=== PATIENT | male | born 1970 | race Caucasian/White ===

== ENCOUNTER 2018-03-14 23:07 | Inpatient (IN) ==
[2018-03-15] MEDS ORDERED: Morphine Inj 4 MG/ML Vial IV.PUSH ONE (00:24)
[2018-03-15] MEDS ORDERED: Sod Chloride 0.9% Inj 1,000 ML IV.SIG ONE (00:24)
--- NOTE | 2018-03-15 00:29 | ED ---
HPI General Chief complaint: Abdominal Pain Stated complaint: Abd pain Time Seen by Provider: 03/15/18 00:15 History of Present Illness HPI narrative: This is a 47-year-old male with no significant past medical history. He presents for evaluation of right-sided abdominal pain. Symptoms started 4 days ago. He describes it as an intermittent sharp/bloating pain, worse this evening for dinner and this is what prompted evaluation. The pain is worse when he is sitting up or bending over. The pain was worse tonight after eating a full dinner of praveen/rice/beans. Over the past 3 days he has had a decreased appetite. He is denying any flank pain, chest pain, shortness of breath. He has had nausea without vomiting. He has had no diarrhea, hematuria or dysuria. No history of abdominal surgeries in the past. No other complaints at this time. Related Data Home Medications Medication Instructions Recorded Confirmed No Known Home Medications 03/15/18 03/15/18 Allergies Allergy/AdvReac Type Severity Reaction Status Date / Time No Known Allergies Allergy Verified 03/15/18 00:07 Review of Systems ROS: all other systems reviewed are negative [facility] Medical History Medical History Herniated disc (Acute) Surgical History Surgical History No history of previous surgery (Acute) Social History Social History Substance History: No History of Abuse Second Hand Smoke Exposure: No Smoking Status: Never smoker How Often Do You Have a Drink Containing Alcohol: 2 to 3 times a week Recent Travel in [facility] within the Last 8 Weeks: No Recent Out of Country Travel within the Last 8 Weeks: No Exam Narrative Exam Narrative: GENERAL: Well-developed well-nourished male in no acute distress SKIN: Warm and dry. HEAD: Atraumatic. Normocephalic. EYES: Pupils equal and round. No scleral icterus. No injection or drainage. ENT: No nasal bleeding or discharge. Mucous membranes pink and moist. NECK: Trachea midline. No JVD. CARDIOVASCULAR: Regular rate and rhythm. No murmur appreciated. RESPIRATORY: No accessory muscle use. Clear to auscultation. Breath sounds equal bilaterally. GASTROINTESTINAL: Abdomen soft, tender to palpation in the lower quadrants and right periumbilical region without guarding. MUSCULOSKELETAL: No obvious deformities. No clubbing. No cyanosis. No edema. NEUROLOGICAL: Awake and alert. No obvious cranial nerve deficits. Motor grossly within normal limits. Normal speech. Course Initial Documented Vital Signs Temperature 99.6 F 03/15/18 00:07 Pulse Rate 120 H 03/15/18 00:07 Respiratory Rate 16 03/15/18 00:07 Blood Pressure 167/103 H 03/15/18 00:07 Pulse Oximetry 98 03/15/18 00:07 Last Documented Vital Signs Temperature 99.1 F 03/15/18 00:32 Pulse Rate 108 H 03/15/18 03:30 Respiratory Rate 16 03/15/18 03:30 Blood Pressure 125/73 03/15/18 03:30 Pulse Oximetry 96 03/15/18 03:30 Medical Decision Making RASHID Attestation RASHID supervised visit: Yes Attestation: I, Dr. Cali, have reviewed the advance practice practitioner's documentation and am in agreement, met with the patient face to face, made the diagnosis, and the medical decision making was done by me. *My assessment and Findings: Pt has perforated sigmoid diverticulitis with pneumoperitoneum. IVF started, 2L NS bolus. 175cc/hr NS. Zosyn 4.5g IV x 1 here. Pt has HR approx 100-110 in ED with BP in the 120s/70s and generally appearing well, speaking full sentences w warm dry skin. Abdomen is diffusely tender. No rigidity our guarding. 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 IV established, lab work and urinalysis obtained. CT abdomen pelvis ordered. The patient was given IV fluid bolus, morphine and Zofran. At the end of my shift the patient was signed out to Dr. Cali pending lab work and imaging studies. Medical Screen Exam Complete: Yes Emergency Medical Condition: Yes Differential Diagnosis Differential Diagnosis: Appendicitis, colitis, cholecystitis, obstruction, enteritis Lab Data Result diagrams: 03/15/18 01:05 03/15/18 01:05 Lab Results 03/15/18 03/15/18 03/15/18 Range/Units 01:05 01:05 01:05 WBC 8.2 (4.0-11.0) th/mm3 RBC 4.40 L (4.50-5.90) mil/mm3 Hgb 14.6 (13.0-17.0) gm/dL Hct 42.8 (39.0-51.0) % MCV 97.1 (80.0-100.0) fL MCH 33.3 (27.0-34.0) pg MCHC 34.3 (32.0-36.0) % RDW 13.6 (11.6-17.2) % Plt Count 224 (150-450) th/mm3 MPV 7.2 (7.0-11.0) fL Neut % (Auto) 79.6 H (16.0-70.0) % Lymph % (Auto) 9.5 (9.0-44.0) % [place] % (Auto) 10.0 H (0.0-8.0) % Eos % (Auto) 0.6 (0.0-4.0) % Baso % (Auto) 0.3 (0.0-2.0) % Neut # (Auto) 6.6 (1.8-7.7) th/mm3 Lymph # (Auto) 0.8 L (1.0-4.8) th/mm3 [place] # (Auto) 0.8 (0.0-0.9) th/mm3 Eos # (Auto) 0.0 (0.0-0.4) th/mm3 Baso # (Auto) 0.0 (0.0-0.2) th/mm3 WBC Differential . Differential Comment Auto diff final PT 10.5 (9.8-11.6) sec INR 1.0 Ratio APTT 30.2 (23.4-31.7) sec Sodium 137 (136-145) meq/L Potassium 3.6 (3.5-5.1) meq/L Chloride 102 (98-107) meq/L Carbon Dioxide 28.7 (21.0-32.0) meq/L Anion Gap 6 (5-15) meq/L BUN 15 (7-18) mg/dL Creatinine 0.94 (0.60-1.30) mg/dL Estimated GFR 86 L (>89) mL/min Random Glucose 139 H (74-106) mg/dL Lactic Acid (0.4-2.0) mmol/L Calcium 9.3 (8.5-10.1) mg/dL Magnesium 2.3 (1.5-2.5) mg/dL Total Bilirubin 0.6 (0.2-1.0) mg/dL AST 21 (15-37) U/L ALT 25 (12-78) U/L Alkaline Phosphatase 105 (45-117) U/L Total Protein 8.5 H (6.4-8.2) g/dL Albumin 3.3 L (3.4-5.0) g/dL Lipase 113 (73-393) U/L Blood Type Blood Type Recheck Antibody Screen 03/15/18 03/15/18 Range/Units 03:05 03:22 WBC (4.0-11.0) th/mm3 RBC (4.50-5.90) mil/mm3 Hgb (13.0-17.0) gm/dL Hct (39.0-51.0) % MCV (80.0-100.0) fL MCH (27.0-34.0) pg MCHC (32.0-36.0) % RDW (11.6-17.2) % Plt Count (150-450) th/mm3 MPV (7.0-11.0) fL Neut % (Auto) (16.0-70.0) % Lymph % (Auto) (9.0-44.0) % [place] % (Auto) (0.0-8.0) % Eos % (Auto) (0.0-4.0) % Baso % (Auto) (0.0-2.0) % Neut # (Auto) (1.8-7.7) th/mm3 Lymph # (Auto) (1.0-4.8) th/mm3 [place] # (Auto) (0.0-0.9) th/mm3 Eos # (Auto) (0.0-0.4) th/mm3 Baso # (Auto) (0.0-0.2) th/mm3 WBC Differential Differential Comment PT (9.8-11.6) sec INR Ratio APTT (23.4-31.7) sec Sodium (136-145) meq/L Potassium (3.5-5.1) meq/L Chloride (98-107) meq/L Carbon Dioxide (21.0-32.0) meq/L Anion Gap (5-15) meq/L BUN (7-18) mg/dL Creatinine (0.60-1.30) mg/dL Estimated GFR (>89) mL/min Random Glucose (74-106) mg/dL Lactic Acid 0.8 (0.4-2.0) mmol/L Calcium (8.5-10.1) mg/dL Magnesium (1.5-2.5) mg/dL Total Bilirubin (0.2-1.0) mg/dL AST (15-37) U/L ALT (12-78) U/L Alkaline Phosphatase (45-117) U/L Total Protein (6.4-8.2) g/dL Albumin (3.4-5.0) g/dL Lipase (73-393) U/L Blood Type B Positive Blood Type Recheck Required Antibody Screen Negative Imaging Data Radiologist's impression: Abdomen/Pelvis CT 03/15/18 00:24 CONCLUSION: 1. Acute perforated sigmoid diverticulitis with secondary involvement of 2 loops of adjacent small bowel. Pneumoperitoneum is noted. No abscess. Discharge Plan Discharge Disposition Patient Disposition: ED Admit(ED Internal Use Only) Discharge Order Discharge Orders: ED Use Only Admit Order (Routine); Ordered 03/15/18 Ordered By: Donny Cali Physicians Team ED Provider: Donny Cali ED Midlevel Provider: J Carlos Nieto Attending Provider: Arturo Madera Status ED Status: Admitted Patient
[2018-03-15 01:22] LABS: Baso % (Auto) 0.3 % (0.0-2.0); Eos % (Auto) 0.6 % (0.0-4.0); Hematocrit 42.8 % (39.0-51.0); Hemoglobin 14.6 gm/dL (13.0-17.0); Lymph # (Auto) 0.8 th/mm3 (1.0-4.8); Lymph % (Auto) 9.5 % (9.0-44.0); Mean Corpuscular HGB Conc 34.3 % (32.0-36.0); Mean Corpuscular Hemoglobin 33.3 pg (27.0-34.0); Mean Corpuscular Volume 97.1 fL (80.0-100.0); Mean Platelet Volume 7.2 fL (7.0-11.0); Mono # (Auto) 0.8 th/mm3 (0.0-0.9); Neut # (Auto) 6.6 th/mm3 (1.8-7.7); Neut % (Auto) 79.6 % (16.0-70.0); Platelet Count 224 th/mm3 (150-450); Red Cell Distribution Width 13.6 % (11.6-17.2); White Blood Count 8.2 th/mm3 (4.0-11.0)
[2018-03-15 01:39] LABS: Activated Partial Thrombo Time 30.2 sec (23.4-31.7); Prothrombin Time 10.5 sec (9.8-11.6)
[2018-03-15 01:46] LABS: Alkaline Phosphatase 105 U/L (45-117); Total Protein 8.5 g/dL (6.4-8.2)
[2018-03-15 01:51] LABS: Alanine Aminotransferase 25 U/L (12-78); Albumin 3.3 g/dL (3.4-5.0); Anion Gap 6 meq/L (5-15); Aspartate Aminotransferase 21 U/L (15-37); Blood Urea Nitrogen 15 mg/dL (7-18); Calcium 9.3 mg/dL (8.5-10.1); Carbon Dioxide 28.7 meq/L (21.0-32.0); Chloride 102 meq/L (98-107); Glomerular Filtration Rate 86 mL/min (>89); Glucose,Random 139 mg/dL (74-106); Lipase 113 U/L (73-393); Magnesium 2.3 mg/dL (1.5-2.5); Sodium 137 meq/L (136-145)
[2018-03-15 01:52] LABS: Potassium 3.6 meq/L (3.5-5.1)
--- NOTE | 2018-03-15 02:31 | CT ---
EXAM DATE: 03/15/2018 2:20 AM EST AGE/SEX: 47 years / Male INDICATIONS: Right side abdominal pain. CLINICAL DATA: This is the patient's initial encounter. Patient reports that signs and symptoms have been present for 4 - 6 days and indicates a pain score of 7/10. MEDICAL/SURGICAL HISTORY: None. None. ORAL CONTRAST: No oral contrast ingested. RADIATION DOSE: 9.33 CTDI (mGy) COMPARISON: No prior exams available for comparison. TECHNIQUE: Multiple contiguous axial images were obtained through the abdomen and pelvis following b olus infusion of 95 ml Omnipaque 350 (iohexol) nonionic water-soluble contrast as a single exam dos e. No oral contrast ingested. Using automated exposure control and adjustment of the mA and/or kV ac cording to patient size, radiation dose was kept as low as reasonably achievable to obtain optimal di agnostic quality images. DICOM format image data is available electronically for review and comparis on. FINDINGS: Lower Lungs: The visualized lower lungs are clear. Liver: The liver has a homogeneous density without space-occupying lesion. There is no dilation of th e biliary tree. Spleen: Homogeneous density without enlargement. Pancreas: Unremarkable without mass or calcification. Kidneys: Normal in size and shape. No evidence of mass or hydronephrosis. Adrenal Glands: Unremarkable. Aorta: The aorta and proximal iliac vessels are grossly unremarkable without aneurysmal dilation. Bowel/Mesentery: There is an acute inflammatory process involving the sigmoid colon. There is second serina involvement of 2 adjacent loops of small bowel. There is circumferential wall thickening involvin g the structures as well as stranding of the adjacent fat. There is a perforation of the sigmoid colo n with pneumoperitoneum. The pneumoperitoneum is not contained and is seen both adjacent to the sigmo id colon as well as more cephalad within the peritoneal cavity. No abscess observed. No dilatation to suggest obstruction. Abdominal Wall: Intact. Retroperitoneum: No evidence of adenopathy in the retrocrural, para-aortic, or deep pelvic regions. Bladder: Contours are smooth. Reproductive Organs: No abnormal masses or calcifications seen. Inguinal: The inguinal region is unremarkable without evidence of adenopathy. Bony Structures: Unremarkable. CONCLUSION: 1. Acute perforated sigmoid diverticulitis with secondary involvement of 2 loops of adjacent small b owel. Pneumoperitoneum is noted. No abscess. Electronically signed by: Cristian Hernández MD Board Certified Radiologist 03/15/2018 2:29 AM EST
[2018-03-15] MEDS: Piperacil/Tazo 4.5 GM Premix 4.5 GM/100 ML BAG IV.SIG SCH ×6 (03:00→21:09)
[2018-03-15] MEDS ORDERED: Sod Chloride 0.9% Inj 1,000 ML IV.SIG SCH (03:00)
[2018-03-15] MEDS ORDERED: Chlorhexidine Gluconate 2% 1 Pack (2 Cloths) TOPICAL PRN (04:00)
[2018-03-15] MEDS ORDERED: Piperacil/Tazo 4.5 GM Premix 4.5 GM/100 ML BAG IV.SIG SCH (04:00)
[2018-03-15] MEDS ORDERED: Acetaminophen 325 MG Tablet PO PRN (04:00)
[2018-03-15] MEDS ORDERED: Bisacodyl 10 MG Supp RECTAL PRN (04:00)
--- NOTE | 2018-03-15 04:05 | P.HPCC ---
History of Present Illness Primary Care Physician: Manuel Snow History of Present Illness: 47-year-old male with no significant past medical history, presents for an evaluation of right-sided abdominal pain. Symptoms started 4 days ago. He describes it as an intermittent sharp/bloating pain, worse this evening after dinner and this is what prompted evaluation. The pain is worse when he is sitting up or bending over. The pain was worse tonight after eating a full dinner of praveen/rice/beans. Over the past 3 days he has had a decreased appetite. He is denying any flank pain, chest pain, shortness of breath. He has had nausea without vomiting. He has had no diarrhea, hematuria or dysuria. No history of abdominal surgeries in the past. No other complaints at this time.CT of the abdomen obtained in the emergency department revealed acute perforated sigmoid diverticulitis with secondary involvement of 2 loops of adjacent small bowel. Pneumoperitoneum is noted. No abscess. This was discussed by ED attending with the surgeon clinical services consultant Dr. Maria, that recommended ICU admission with IV fluid hydration and IV antibiotics with no current surgical intervention. Inpatient Certification: I certify that the inpatient services were ordered in accordance with Medicare regulations governing the order. This includes certification that hospital inpatient services are reasonable and necessary and in the case of services not specified as inpatient-only under 42 CFR 419.22(n), that they are appropriately provided as inpatient services in accordance to with the 2-midnight benchmark under 43 CFR 412.3(e) Estimated Total Length of Stay (Days): 5 Plans for Post Hospital Care: Not yet determined Review of Systems All other systems reviewed negative except as stated in HPI [facility] - History History Provided By: Patient, Family Member - Medical History Medical History: Medical History (Last Updated 03/15/18 @ 00:12 by Dhara Verde) Herniated disc - Surgical History Surgical History: Surgical History (Last Updated 03/15/18 @ 00:12 by Dhara Verde) No history of previous surgery - Tobacco History Second Hand Smoke Exposure: No Tobacco Use In Past 30 Days: No Smoking Status: Never smoker - Alcohol History How Often Do You Have a Drink Containing Alcohol: 2 to 3 times a week - Substance Use History Substance History: No History of Abuse - Travel History Recent Travel in the [place] Within the Last 8 Weeks: No Recent Travel Out of the Country Within the Last 8 Weeks: No - Immunization History Tetanus Immunization: Unsure Medications and Allergies Active Medications: Active Medications Acetaminophen (Tylenol) 650 mg PO Q6H PRN PRN Reason: PAIN 1-10 AND/OR FEVER >101F Al Hydroxide/Mg Hydroxide (Milk Of Magnesia Liq) 30 ml PO Q12H PRN PRN Reason: Mild Constipation Albuterol (Duoneb Neb (Prn)) 1 ampul NEB Q2HR NEB PRN PRN Reason: WHEEZING Bisacodyl (Dulcolax Supp) 10 mg RECTAL DAILY PRN PRN Reason: SEVERE CONSITIPATION Chlorhexidine Gluconate (Chlorhexidine 2% Cloth) 3 pack TOPICAL DAILY@0400 RODGER Stop: 03/20/18 03:59 Chlorhexidine Gluconate (Chlorhexidine 2% Cloth) 3 pack TOPICAL DAILY@0400 PRN PRN Reason: Extra cloth needed Stop: 03/20/18 03:59 Famotidine (Pepcid Pf Inj) 20 mg IV.PUSH Q12HR RODGER Heparin Sodium (Porcine) (Heparin Inj) 5,000 units SQ Q8H RODGER Piperacillin/Tazobactam/Dextrose (Zosyn 4.5 Gm Premix) 4.5 gm in 100 mls @ 200 mls/hr IV.SIG ONCE [facility] Last Infusion: 03/15/18 03:40 Dose: Infused Sodium Chloride (Ns Inj) 1,000 mls @ 175 mls/hr IV.CONT .Q5H43M RODGER Piperacillin/Tazobactam/Dextrose (Zosyn 4.5 Gm Premix) 4.5 gm in 100 mls @ 200 mls/hr IV.SIG Q6H RODGER Fluconazole (Diflucan 400 Mg Premix Bag) 200 mls @ 100 mls/hr IV.SIG Q24H [facility] Stop: 03/17/18 06:59 Lactulose (Lactulose Liq) 30 ml PO DAILY PRN PRN Reason: SEVERE CONSITIPATION Morphine Sulfate (Morphine Inj) 2 mg IV.PUSH Q2H PRN PRN Reason: PAIN SCALE 6 TO 10 Ondansetron HCl (Zofran Inj) 4 mg IV.PUSH Q6H PRN PRN Reason: NAUSEA OR VOMITING Senna/Docusate Sodium (Pema-Colace) 1 tab PO BID [facility] Sennosides (Senokot) 17.2 mg PO Q12H PRN PRN Reason: Moderate Constipation Sodium Chloride (Ns Flush) 2 ml IV.FLUSH PRN PRN PRN Reason: FLUSH AFTER USING IV ACCESS Sodium Chloride (Ns Flush) 2 ml IV.FLUSH BID RODGER Sodium Chloride (Ns Flush) 2 ml IV.FLUSH PRN PRN PRN Reason: FLUSH AFTER USING IV ACCESS Temazepam (Restoril) 15 mg PO HS PRN PRN Reason: INSOMNIA Allergies Allergy/AdvReac Type Severity Reaction Status Date / Time No Known Allergies Allergy Verified 03/15/18 00:07 Home Medications Medication Instructions Recorded Confirmed Type No Known Home Medications 03/15/18 03/15/18 History Results - Labs CBC & Chem 7: 03/15/18 01:05 03/15/18 01:05 Labs: Short CBC 03/15/18 Range/Units 01:05 WBC 8.2 (4.0-11.0) th/mm3 Hgb 14.6 (13.0-17.0) gm/dL Hct 42.8 (39.0-51.0) % Plt Count 224 (150-450) th/mm3 BMP 03/15/18 01:05 Sodium 137 Potassium 3.6 Chloride 102 Carbon Dioxide 28.7 BUN 15 Creatinine 0.94 Calcium 9.3 Liver Function 03/15/18 Range/Units 01:05 Total Bilirubin 0.6 (0.2-1.0) mg/dL AST 21 (15-37) U/L ALT 25 (12-78) U/L Alkaline Phosphatase 105 (45-117) U/L Albumin 3.3 L (3.4-5.0) g/dL - Imaging Impressions Abdomen/Pelvis CT 03/15/18 00:24 CONCLUSION: 1. Acute perforated sigmoid diverticulitis with secondary involvement of 2 loops of adjacent small bowel. Pneumoperitoneum is noted. No abscess. Exam Vital signs: Vital Signs 03/15/18 00:07 03/15/18 00:32 03/15/18 03:00 Temperature 99.6 F 99.1 F Pulse Rate 120 H 102 H 104 H Respiratory Rate 16 17 16 Blood Pressure 167/103 H 166/102 H 126/75 Pulse Oximetry 98 96 97 03/15/18 03:30 Temperature Pulse Rate 108 H Respiratory Rate 16 Blood Pressure 125/73 Pulse Oximetry 96 Intake & Output 03/14/18 03/14/1819 06:59 18:59 06:59 Intake Total 1100 / 1100 Balance 1100 / 1100 Weight 99.79 kg Intake: IV 1100 / 1100 Zosyn 4.5 GM Premix 4.5 gm In 100 / 100 100 ml @ 200 mls/hr IV.SIG ONCE RODGER Rx#:[id number] NS Inj 1,000 ML @ Wide Open IV. 1000 / 1000 SIG BOLUS ONE Rx#:[id number] - Constitutional no acute distress - Routine HEENT Exam Head: Present: normocephalic, atraumatic Eye: Present: EOMI, PERRL ENT: Present: mucous membranes moist - Routine Neck Exam Present: supple, full ROM. Absent: JVD, carotid bruit - Routine Respiratory Exam Absent: accessory muscle use, rales, wheezes, crackles - Routine Cardiovascular Exam Present: RRR, S1, S2 - Routine Abdominal Exam Present: soft, normoactive bowel sounds, tenderness, distended. Absent: rebound , guarding - Routine Extremities Exam Absent: cyanosis, clubbing, edema - Routine Skin Exam Present: intact - Routine Neurological Exam Present: alert, oriented X3, moving all extremities Septic Shock Reassessment Septic shock perfusion: reassessment completed Caprini VTE Risk Assessment Caprini VTE Risk Assessment: Moderate/High Risk (score >= 2) Caprini Risk Assessment Model: Point Value = 1 Point Value = 2 Point Value = 3 Point Value = 5 Age 41-60 Minor surgery BMI > 25 kg/m2 Swollen legs Varicose veins or History of unexplained or recurrent spontaneous Oral contraceptives or hormone replacement Sepsis (< 1 month) Serious lung disease, including pneumonia (< 1 month) Abnormal pulmonary function Acute myocardial infarction Congestive heart failure (< 1 month) History of inflammatory bowel disease Medical patient at bed rest Age 61-74 Arthroscopic surgery Major open surgery (> 45 min) Laparoscopic surgery (> 45 min) Malignancy Confined to bed (> 72 hours) Immobilizing plaster cast Central venous access Age >= 75 History of VTE Family history of VTE Factor V Leiden Prothrombin [id number] Lupus anticoagulant Anticardiolipin antibodies Elevated serum homocysteine Heparin-induced thrombocytopenia Other congenital or acquired thrombophilia Stroke (< 1 month) Elective arthroplasty Hip, pelvis, or leg fracture Acute spinal cord injury (< 1 month) Prophylaxis Regimen: Total Risk Factor Score Risk Level Prophylaxis Regimen 0-1 Low Early ambulation 2 Moderate Order ONE of the following: *Sequential Compression Device (SCD) *Heparin 5000 units SQ BID 3-4 Higher Order ONE of the following medications: *Heparin 5000 units SQ TID *Enoxaparin/Lovenox 40 mg SQ daily (WT < 150 kg, CrCl > 30 mL/min) *Enoxaparin/Lovenox 30 mg SQ daily (WT < 150 kg, CrCl > 10-29 mL/min) *Enoxaparin/Lovenox 30 mg SQ BID (WT < 150 kg, CrCl > 30 mL/min) AND/OR *Sequential Compression Device (SCD) 5 or more Highest Order ONE of the following medications: *Heparin 5000 units SQ TID (Preferred with Epidurals) *Enoxaparin/Lovenox 40 mg SQ daily (WT < 150 kg, CrCl > 30 mL/min) *Enoxaparin/Lovenox 30 mg SQ daily (WT < 150 kg, CrCl > 10-29 mL/min) *Enoxaparin/Lovenox 30 mg SQ BID (WT < 150 kg, CrCl > 30 mL/min) AND *Sequential Compression Device (SCD) Assessment and Plan - Assessment and Plan Plan: Acute perforated sigmoid diverticulitis -N.p.o. -IV fluid hydration -Empirically Zosyn and Diflucan -Further management per general surgery Dr. Maria DVT GI prophylaxis -Teds SCDs -Subcu heparin -Pepcid Level 2
[2018-03-15] MEDS: Heparin - SQ 10,000 UNITS/ML Vial SQ SCH ×3 (04:16→21:08)
[2018-03-15 06:35] LABS: Bilirubin,Urine Negative (Negative); Clarity,Urine Clear (Clear); Color,Urine Yellow (Yellw/Straw); Glucose,Urine (UA) Negative (Negative); Leukocyte Esterase,Urine Negative (Negative); Mucus,Urine Few /lpf (Occasional); Nitrite,Urine Negative (Negative)
[2018-03-15] MEDS: Chlorhexidine Gluconate 2% 1 Pack (2 Cloths) TOPICAL SCH (06:55)
[2018-03-15] MEDS: Sod Chloride 0.9% Inj 1,000 ML IV.CONT SCH ×3 (06:55→17:22)
[2018-03-15] MEDS: Famotidine PF Inj 20 MG/2 ML Vial IV.PUSH SCH ×2 (08:03→21:07)
[2018-03-15] MEDS ORDERED: Morphine Inj 4 MG/ML Vial IV.PUSH PRN (08:59)
[2018-03-15] MEDS ORDERED: Senna/Docusate Sodium 8.6/50 MG Tablet PO SCH (09:00)
[2018-03-15] MEDS ORDERED: Magnesium Sulfate Inj 4 GM in Sodium Chlor 0.9% Inj 92 ML IV.SIG PRN (09:10)
[2018-03-15] MEDS ORDERED: Potassium Chlor 20 mEq Premix 20 MEQ/100 ML PIGGYBACK IV.SIG PRN ×2 (09:10)
[2018-03-15] MEDS ORDERED: Magnesium Sulfate Inj 2 GM in Sodium Chlor 0.9% Inj 96 ML IV.SIG PRN (09:10)
[2018-03-15] MEDS ORDERED: Potassium Chlor 40 mEq Premix 40 MEQ/100 ML PIGGYBACK IV.SIG PRN ×2 (09:10)
[2018-03-15] MEDS ORDERED: Sodium Phosphate Inj 30 MMOL in Sodium Chlor 0.9% Inj 250 ML IV.SIG PRN (09:10)
[2018-03-15] MEDS ORDERED: Potassium Phosphate Inj 30 MMOL in Sodium Chlor 0.9% Inj 250 ML IV.SIG PRN (09:10)
[2018-03-15] MEDS: Morphine Inj 4 MG/ML Vial IV.PUSH PRN ×2 (10:59→23:34)
--- NOTE | 2018-03-15 10:59 | P.CONGS ---
[facility] Gen Surgery Consult Note Consult date: 03/15/18 Narrative: 47 yo M with h/o 4 days of abdominal pain. It was most severe 4 days ago and then decreasing in severity until last night. He had had decreased appetite and one night he had fever and chills. The pain had almost completely resolved yesterday and then about 15 minutes after dinner he had severe onset of lower abdominal pain which was debilitating. He presented to the emergency department. He had normal white blood count with a left shift. He underwent CT of the abdomen and pelvis which revealed perforated sigmoid diverticulitis with pneumoperitoneum and inflammation of some associated small bowel. On my evaluation this morning he states his pain has improved slightly since last night but is still severe. Review of Systems All other systems reviewed negative except as stated in [facility] - History History Provided By: Patient, Family Member - Medical History Medical History: Medical History (Last Reviewed 03/15/18 @ 09:57 by Jaclyn Farmer DO) Herniated disc - Surgical History Surgical History: Surgical History (Last Reviewed 03/15/18 @ 09:57 by Jaclyn Farmer DO) No history of previous surgery - Tobacco History Second Hand Smoke Exposure: No Tobacco Use In Past 30 Days: No Smoking Status: Never smoker - Alcohol History How Often Do You Have a Drink Containing Alcohol: 2 to 3 times a week - Substance Use History Substance History: No History of Abuse - Travel History Recent Travel in the [place] Within the Last 8 Weeks: No Recent Travel Out of the Country Within the Last 8 Weeks: No - Immunization History Tetanus Immunization: Unsure Medications and Allergies Active Medications: Active Medications Acetaminophen (Tylenol) 650 mg PO Q6H PRN PRN Reason: PAIN 1-10 AND/OR FEVER >101F Al Hydroxide/Mg Hydroxide (Milk Of Sheila Lijuancho) 30 ml PO Q12H PRN PRN Reason: Mild Constipation Albuterol (Duoneb Neb (Prn)) 1 ampul NEB Q2HR NEB PRN PRN Reason: WHEEZING Bisacodyl (Dulcolax Supp) 10 mg RECTAL DAILY PRN PRN Reason: SEVERE CONSITIPATION Chlorhexidine Gluconate (Chlorhexidine 2% Cloth) 3 pack TOPICAL DAILY@0400 [facility] Stop: 03/20/18 03:59 Last Admin: 03/15/18 06:55 Dose: 3 pack Chlorhexidine Gluconate (Chlorhexidine 2% Cloth) 3 pack TOPICAL DAILY@0400 PRN PRN Reason: Extra cloth needed Stop: 03/20/18 03:59 Famotidine (Pepcid Pf Inj) 20 mg IV.PUSH Q12HR [facility] Last Admin: 03/15/18 08:03 Dose: 20 mg Heparin Sodium (Porcine) (Heparin Inj) 5,000 units SQ Q8H [facility] Last Admin: 03/15/18 04:16 Dose: 5,000 units Piperacillin/Tazobactam/Dextrose (Zosyn 4.5 Gm Premix) 4.5 gm in 100 mls @ 200 mls/hr IV.SIG ONCE [facility] Last Infusion: 03/15/18 03:40 Dose: Infused Sodium Chloride (Ns Inj) 1,000 mls @ 175 mls/hr IV.CONT .Q5H43M [facility] Last Admin: 03/15/18 06:55 Dose: 175 mls/hr Fluconazole (Diflucan 400 Mg Premix Bag) 200 mls @ 100 mls/hr IV.SIG Q24H [facility] Stop: 03/17/18 06:59 Last Infusion: 03/15/18 09:08 Dose: Infused Piperacillin/Tazobactam/Dextrose (Zosyn 4.5 Gm Premix) 4.5 gm in 100 mls @ 200 mls/hr IV.SIG Q6H [facility] Last Infusion: 03/15/18 09:08 Dose: Infused Magnesium Sulfate 4 gm/ Sodium (Chloride) 100 mls @ 50 mls/hr IV.SIG UNSCH PRN PRN Reason: For Magnesium 0.9 - 1.1 mg/dL Magnesium Sulfate 2 gm/ Sodium (Chloride) 100 mls @ 50 mls/hr IV.SIG UNSCH PRN PRN Reason: For Magnesium 1.2 - 1.6 mg/dL Potassium Chloride (Kcl 40 Meq Premix Inj) 40 meq in 100 mls @ 25 mls/hr IV.SIG Q2H PRN PRN Reason: For Potassium 2.8 - 3.2 mEq/L Potassium Chloride (Kcl 20 Meq Premix Inj) 20 meq in 100 mls @ 50 mls/hr IV.SIG Q2H PRN PRN Reason: For Potassium 3.3 - 3.5 mEq/L Potassium Chloride (Kcl 40 Meq Premix Inj) 40 meq in 100 mls @ 25 mls/hr IV.SIG UNSCH PRN PRN Reason: For Potassium 3.3 - 3.5 mEq/L Potassium Phosphate 30 mmol/ (Sodium Chloride) 260 mls @ 42 mls/hr IV.SIG UNSCH PRN PRN Reason: SEE LABEL COMMENTS Sodium Phosphate 30 mmol/ (Sodium Chloride) 260 mls @ 42 mls/hr IV.SIG UNSCH PRN PRN Reason: For Phosphorus < 2.5 mg/dL Potassium Chloride (Kcl 20 Meq Premix Inj) 20 meq in 100 mls @ 50 mls/hr IV.SIG Q2H PRN PRN Reason: For Potassium 2.8 - 3.2 mEq/L Lactulose (Lactulose Liq) 30 ml PO DAILY PRN PRN Reason: SEVERE CONSITIPATION Morphine Sulfate (Morphine Inj) 2 mg IV.PUSH Q2H PRN PRN Reason: PAIN SCALE 1 TO 5 Morphine Sulfate (Morphine Inj) 4 mg IV.PUSH Q2H PRN PRN Reason: PAIN SCALE 6 TO 10 Ondansetron HCl (Zofran Inj) 4 mg IV.PUSH Q6H PRN PRN Reason: NAUSEA OR VOMITING Senna/Docusate Sodium (Pema-Colace) 1 tab PO BID [facility] Last Admin: 03/15/18 08:03 Dose: Not Given Sennosides (Senokot) 17.2 mg PO Q12H PRN PRN Reason: Moderate Constipation Sodium Chloride (Ns Flush) 2 ml IV.FLUSH BID [facility] Last Admin: 03/15/18 08:03 Dose: 2 ml Sodium Chloride (Ns Flush) 2 ml IV.FLUSH PRN PRN PRN Reason: FLUSH AFTER USING IV ACCESS Temazepam (Restoril) 15 mg PO HS PRN PRN Reason: INSOMNIA Allergies Allergy/AdvReac Type Severity Reaction Status Date / Time No Known Allergies Allergy Verified 03/15/18 00:07 Home Medications Medication Instructions Recorded Confirmed Type No Known Home Medications 03/15/18 03/15/18 History Exam Vital signs: Vital Signs 03/15/18 00:07 03/15/18 00:32 03/15/18 03:00 Temperature 99.6 F 99.1 F Pulse Rate 120 H 102 H 104 H Respiratory Rate 16 17 16 Blood Pressure 167/103 H 166/102 H 126/75 Pulse Oximetry 98 96 97 03/15/18 03:30 03/15/18 06:00 03/15/18 06:25 Temperature Pulse Rate 108 H 98 H Respiratory Rate 16 Blood Pressure 125/73 132/83 Pulse Oximetry 96 03/15/18 06:26 03/15/18 06:39 03/15/18 07:00 Temperature 99.9 F H Pulse Rate 103 H 103 H Respiratory Rate 21 21 Blood Pressure 141/77 H Pulse Oximetry 99 97 96 03/15/18 07:13 03/15/18 08:00 03/15/18 08:13 Temperature 98.0 F Pulse Rate 100 H 94 H 92 H Respiratory Rate 17 19 18 Blood Pressure 122/75 120/75 120/75 Pulse Oximetry 96 97 95 03/15/18 09:00 03/15/18 10:00 Temperature Pulse Rate 89 89 Respiratory Rate 15 Blood Pressure Pulse Oximetry 97 Intake & Output 03/14/18 03/15/18 03/15/18 18:59 06:59 18:59 Intake Total 2100 / 2100 300 / 300 Balance 2100 / 2100 300 / 300 Weight 98.5 kg Intake: IV 2100 / 2100 300 / 300 Diflucan 400 mg Premix Bag 200 200 / 200 ML @ 100 mls/hr IV.SIG Q24H [facility] Rx#:[id number] Zosyn 4.5 GM Premix 4.5 gm In 100 / 100 100 / 100 100 ml @ 200 mls/hr IV.SIG Q6H [facility] Rx#:[id number] NS Inj 1,000 ML @ 1000 mls/hr 1999 / 1999 IV.SIG BOLUS [facility] Rx#:[id number] Oral 0 / 0 Other: Date of Last Bowel Movement 03/14/18 03/14/18 Weight On Admission 98.5 kg Narrative: GENERAL: Awake and alert. No acute distress. Cooperative. HEAD: Normocephalic. Atraumatic. EYES: Pupils equal round and reactive to light bilaterally. No scleral icterus. ENT: Moist oral mucosa. NECK: Trachea midline. CHEST: Nonlabored breathing. No respiratory distress. CARDIOVASCULAR: Mild sinus tachycardia. ABDOMEN: Mild distention. Severe tenderness in the right lower quadrant with positive rebound. Less severe rebound in the upper abdomen in the left lower abdomen. EXTREMITIES: No cyanosis or edema. SKIN: Warm, dry, nonjaundiced. Results - Labs 03/15/18 01:05 03/15/18 01:05 Laboratory Results - last 24 hr 03/15/18 03/15/18 03/15/18 01:05 01:05 01:05 WBC 8.2 RBC 4.40 L Hgb 14.6 Hct 42.8 MCV 97.1 MCH 33.3 MCHC 34.3 RDW 13.6 Plt Count 224 MPV 7.2 Neut % (Auto) 79.6 H Lymph % (Auto) 9.5 [place] % (Auto) 10.0 H Eos % (Auto) 0.6 Baso % (Auto) 0.3 Neut # (Auto) 6.6 Lymph # (Auto) 0.8 L [place] # (Auto) 0.8 Eos # (Auto) 0.0 Baso # (Auto) 0.0 WBC Differential . Differential Comment Auto diff final PT 10.5 INR 1.0 APTT 30.2 Sodium 137 Potassium 3.6 Chloride 102 Carbon Dioxide 28.7 Anion Gap 6 BUN 15 Creatinine 0.94 Estimated GFR 86 L Random Glucose 139 H Lactic Acid Calcium 9.3 Magnesium 2.3 Total Bilirubin 0.6 AST 21 ALT 25 Alkaline Phosphatase 105 Total Protein 8.5 H Albumin 3.3 L Lipase 113 Urine Color Urine Clarity Urine pH Ur Specific [place] Urine Protein Urine Glucose (UA) Urine Ketones Urine Occult Blood Urine Nitrate Urine Bilirubin Urine Urobilinogen Ur Leukocyte Esterase Urine RBC Urine WBC Urine Mucus Micro UA Comment Ur Microscopic Review Urine Culture Comments Blood Type Blood Type Recheck Antibody Screen 03/15/18 03/15/18 03/15/18 03:05 03:22 05:00 WBC RBC Hgb Hct MCV MCH MCHC RDW Plt Count MPV Neut % (Auto) Lymph % (Auto) [place] % (Auto) Eos % (Auto) Baso % (Auto) Neut # (Auto) Lymph # (Auto) [place] # (Auto) Eos # (Auto) Baso # (Auto) WBC Differential Differential Comment PT INR APTT Sodium Potassium Chloride Carbon Dioxide Anion Gap BUN Creatinine Estimated GFR Random Glucose Lactic Acid 0.8 Calcium Magnesium Total Bilirubin AST ALT Alkaline Phosphatase Total Protein Albumin Lipase Urine Color Yellow Urine Clarity Clear Urine pH 5.0 Ur Specific [place] Greater than 1.060 H Urine Protein Negative Urine Glucose (UA) Negative Urine Ketones Negative Urine Occult Blood Negative Urine Nitrate Negative Urine Bilirubin Negative Urine Urobilinogen Less than 2 Ur Leukocyte Esterase Negative Urine RBC 2 Urine WBC Less than 1 Urine Mucus Few H Micro UA Comment Culture not ind Ur Microscopic Review Not Reportable Urine Culture Comments Culture not ind Blood Type B Positive Blood Type Recheck Required Antibody Screen Negative - Imaging Imaging: ITS Impressions Abdomen/Pelvis CT 03/15/18 00:24 CONCLUSION: 1. Acute perforated sigmoid diverticulitis with secondary involvement of 2 loops of adjacent small bowel. Pneumoperitoneum is noted. No abscess. CT scan - abdomen: report reviewed, image reviewed CT scan - pelvis: report reviewed, image reviewed Assessment and Plan - Assessment (1) Diverticulitis of colon with perforation Code(s): K57.20 - Diverticulitis of large intestine with perforation and abscess without bleeding Status: Acute - Plan 47-year-old male who has diverticulitis with perforation and pneumoperitoneum. He is quite tenderness with borderline and generalized peritonitis on exam. There is associated small bowel involvement. I have recommended to proceed to the operating room for diagnostic laparoscopy with washout and drainage, possible colectomy and colostomy, possible diverting ileostomy. He understands there are multiple options and this will be an intraoperative decision. I do think he will likely be able to be treated with laparoscopic washout and drainage alone at this time but we will see. Continue IV antibiotics.
[2018-03-15] MEDS ORDERED: Bupivacaine/Epinephrine Inj 0.25% 50 ML Vial ONE (11:20)
--- NOTE | 2018-03-15 14:21 | P.OP ---
- Preoperative Diagnosis (1) Diverticulitis of colon with perforation - Postoperative Diagnosis (1) Diverticulitis of colon with perforation Date of procedure: 03/15/18 Procedure: Laparoscopic drainage of intraabdominal abscess and lysis of adhesions Diverting ileostomy Anesthesia: ISABELA Surgeon: Leo Oliveira MD Auto Porter: Michael PINO Estimated blood loss (mL): 20 Pathology: none sent Operation and Findings: Operative findings: Phlegmon in right lower abdomen with multiple loops of small bowel very inflamed and adherent to sigmoid colon. After careful gentle adhesiolysis and separation of the small bowel loops a sigmoid diverticular perforation was noted and associated with small abscess and significantly inflamed surrounding mesenteric tissue and small bowel. The appendix was visualized and was normal. Washout, drainage, and diverting ileostomy were performed. Procedure in detail: The patient was taken to the operating room placed in supine position. General endotracheal anesthesia was induced. The abdomen was prepped and draped in usual sterile fashion and a surgical timeout was performed to verify correct patient procedure and site. [place] catheter and orogastric tube were placed. He was on scheduled antibiotics. Local anesthetic was injected in skin and subcutaneous tissue in the left midabdomen and a 5 mm incision made. The Optiview trocar with the laparoscope in place was used to directly enter the abdominal cavity which was insufflated to 15 mmHg with CO2 gas. A 5 mm port was placed in the epigastrium and on the left lower abdomen. The patient was placed in Trendelenburg position. There was evidence of generalized peritonitis with inflammation of small bowel and peritoneum. In the right lower abdomen there was a large phlegmonous mass of small bowel mesentery and omentum. Omentum was . Multiple loops of small bowel were significantly inflamed and gently adherent to one another. These loops were carefully teased apart using blunt dissection. More deeply there were 2 loops intimately associated with an abscess in these were finally able to be freed. The loop of sigmoid colon coming into the right lower abdomen had an area of obvious perforation causing a diverticular abscess and the pneumoperitoneum and peritonitis. Exudate and a small amount of purulent and feculent fluid in the abscess cavity was suctioned. The appendix was visualized and was normal. Due to the perforation which is visible in the sigmoid colon I did not feel comfortable with drainage alone. Therefore, I opted to proceed with diverting ileostomy. First, I reevaluated the small bowel and there were no injuries to the small bowel. The very distal terminal ileum was significantly inflamed. Proximal to this the small bowel was only mildly inflamed and this was a site chosen for the ileostomy. The abscess cavity pelvis and right lower quadrant were copiously irrigated and the entire abdomen was irrigated with 3 L of normal saline. A single [id number] 3-0 Vicryl suture was placed into the sigmoid colon at the site of the perforation to reapproximate the tissues. A 19 Pashto round [place] drain was placed to the left lower port site alongside the sigmoid colon. This was secured with 3-0 nylon suture. In the right lower quadrant circular incision was made in the skin removed. Dissection was carried out through subcutaneous tissue with electrocautery and a cruciate incision made in the anterior fascia. The posterior fascia was elevated and incised. 2 fingers fit through this ostomy site in the portion of terminal ileum chosen was brought through an externalized. The hazel was placed through the mesentery at the site. A transverse incision was made on the small bowel approximately one [address] way across. The ileostomy was matured proximally and distally to the skin with 3-0 Vicryl suture in Rose fashion. The patient tolerated the procedure well. An ostomy appliance was applied. The remaining 2 port sites were closed with subcuticular 4-0 Monocryl suture and Dermabond. Sponge management counts were correct. He was extubated and taken to PACU in stable condition.
[2018-03-15] MEDS ORDERED: fentaNYL Citrate Inj 100 MCG/2 ML Ampul ONE (14:46)
[2018-03-15] MEDS ORDERED: Morphine Inj 4 MG/ML Vial ONE (14:52)
[2018-03-15] MEDS: Ketorolac Inj 30 MG/ML (IVP) Vial IV.PUSH SCH ×2 (15:00→21:08)
[2018-03-15 16:22] LABS: Baso % (Auto) 0.3 % (0.0-2.0); Eos % (Auto) 0.2 % (0.0-4.0); Hematocrit 37.9 % (39.0-51.0); Lymph # (Auto) 0.4 th/mm3 (1.0-4.8); Lymph % (Auto) 5.7 % (9.0-44.0); Mean Corpuscular HGB Conc 34.4 % (32.0-36.0); Mean Corpuscular Hemoglobin 33.8 pg (27.0-34.0); Mean Corpuscular Volume 98.3 fL (80.0-100.0); Mean Platelet Volume 7.1 fL (7.0-11.0); Mono # (Auto) 0.3 th/mm3 (0.0-0.9); Mono % (Auto) 4.3 % (0.0-8.0); Neut % (Auto) 89.5 % (16.0-70.0); Platelet Count 217 th/mm3 (150-450); Red Blood Count 3.85 mil/mm3 (4.50-5.90); Red Cell Distribution Width 13.4 % (11.6-17.2); White Blood Count 6.8 th/mm3 (4.0-11.0)
[2018-03-15 16:53] LABS: Alanine Aminotransferase 17 U/L (12-78); Albumin 2.5 g/dL (3.4-5.0); Alkaline Phosphatase 83 U/L (45-117); Anion Gap 7 meq/L (5-15); Aspartate Aminotransferase 16 U/L (15-37); Blood Urea Nitrogen 10 mg/dL (7-18); Calcium 7.4 mg/dL (8.5-10.1); Carbon Dioxide 23.8 meq/L (21.0-32.0); Chloride 107 meq/L (98-107); Glomerular Filtration Rate Greater Than 89 mL/min (>89); Glucose,Random 147 mg/dL (74-106); Magnesium 2.2 mg/dL (1.5-2.5); Potassium 3.9 meq/L (3.5-5.1); Sodium 138 meq/L (136-145); Total Protein 6.9 g/dL (6.4-8.2)
[2018-03-16] MEDS: Sod Chloride 0.9% Inj 1,000 ML IV.CONT SCH (03:12)
[2018-03-16] MEDS: Piperacil/Tazo 4.5 GM Premix 4.5 GM/100 ML BAG IV.SIG SCH ×5 (03:13→20:51)
[2018-03-16] MEDS: Ketorolac Inj 30 MG/ML (IVP) Vial IV.PUSH SCH ×4 (03:13→20:50)
[2018-03-16] MEDS: Chlorhexidine Gluconate 2% 1 Pack (2 Cloths) TOPICAL SCH (03:54)
[2018-03-16] MEDS: Heparin - SQ 10,000 UNITS/ML Vial SQ SCH ×3 (03:57→20:48)
[2018-03-16 03:58] LABS: Baso % (Auto) 0.1 % (0.0-2.0); Hematocrit 36.8 % (39.0-51.0); Hemoglobin 12.7 gm/dL (13.0-17.0); Lymph # (Auto) 0.6 th/mm3 (1.0-4.8); Lymph % (Auto) 7.8 % (9.0-44.0); Mean Corpuscular HGB Conc 34.6 % (32.0-36.0); Mean Corpuscular Hemoglobin 33.6 pg (27.0-34.0); Mean Corpuscular Volume 96.9 fL (80.0-100.0); Mean Platelet Volume 7.1 fL (7.0-11.0); Mono # (Auto) 0.6 th/mm3 (0.0-0.9); Mono % (Auto) 8.5 % (0.0-8.0); Neut # (Auto) 6.2 th/mm3 (1.8-7.7); Neut % (Auto) 83.6 % (16.0-70.0); Platelet Count 224 th/mm3 (150-450); Red Cell Distribution Width 13.7 % (11.6-17.2); White Blood Count 7.4 th/mm3 (4.0-11.0)
[2018-03-16 04:19] LABS: Albumin 2.7 g/dL (3.4-5.0); Anion Gap 9 meq/L (5-15); Aspartate Aminotransferase 15 U/L (15-37); Blood Urea Nitrogen 9 mg/dL (7-18); Calcium 8.1 mg/dL (8.5-10.1); Carbon Dioxide 24.3 meq/L (21.0-32.0); Chloride 107 meq/L (98-107); Glomerular Filtration Rate Greater Than 89 mL/min (>89); Glucose,Random 137 mg/dL (74-106); Magnesium 2.3 mg/dL (1.5-2.5); Sodium 140 meq/L (136-145)
[2018-03-16 04:23] LABS: Alanine Aminotransferase 17 U/L (12-78); Alkaline Phosphatase 78 U/L (45-117); Phosphorus 3.2 mg/dL (2.5-4.9); Total Protein 7.1 g/dL (6.4-8.2)
--- NOTE | 2018-03-16 09:46 | P.PNIM ---
Subjective Interval history: doing ok. minimal abdomen discomfort. Physical Exam Vital signs: Last Vital Signs Temp 97.9 F 03/16/18 04:00 Pulse 69 03/16/18 07:46 Resp 17 03/16/18 07:00 BP 137/91 H 03/16/18 07:00 Pulse Ox 98 03/16/18 07:00 Narrative: heart reg lung cta abd bs/ostomy. dark liquid stool. mild distention ext no edema Results Labs CBC & Chem 7: 03/16/18 03:45 03/16/18 03:45 Assessment and Plan Assessment (1) Diverticulitis of colon with perforation: Code(s): K57.20 - Diverticulitis of large intestine with perforation and abscess without bleeding Status: Acute Plan perferated diverticulitis s/p lap with HALI, abscess drainage, creation of ostomy cont iv abx prn pain control on clears. diet advancement per gen surg PT and oob. dvt prophylaxis. Progress Note: Quality VTE Deep Vein Thrombosis/Pulmonary Embolism Present on Admission: No _ (1) Diverticulitis of colon with perforation Qualifiers: Diverticulitis bleeding:
[2018-03-16] MEDS: Famotidine PF Inj 20 MG/2 ML Vial IV.PUSH SCH ×2 (09:47→20:48)
--- NOTE | 2018-03-16 13:05 | P.PNGS ---
Subjective Interval history: Pain is minimal. Has dark liquid stool in bag. No complaints. Physical Exam Vital signs: Vital Signs 03/15/18 14:21 03/15/18 14:28 03/15/18 14:45 Temperature 99.2 F Pulse Rate 91 H 94 H 79 Respiratory Rate 14 20 12 Blood Pressure 134/92 H 132/81 141/95 H Pulse Oximetry 96 98 98 03/15/18 14:58 03/15/18 15:00 03/15/18 15:05 Temperature 98.6 F Pulse Rate 83 Respiratory Rate 16 Blood Pressure 152/95 H Pulse Oximetry 96 99 99 03/15/18 16:00 03/15/18 16:42 03/15/18 16:43 Temperature 98.3 F Pulse Rate 74 71 81 Respiratory Rate 14 17 21 Blood Pressure 134/92 H 137/91 H 130/85 Pulse Oximetry 97 96 97 03/15/18 17:00 03/15/18 18:00 03/15/18 19:00 Temperature Pulse Rate 68 73 76 Respiratory Rate 15 19 23 Blood Pressure 135/91 H 123/86 133/90 Pulse Oximetry 97 97 96 03/15/18 20:00 03/15/18 21:00 03/15/18 22:00 Temperature 98.5 F Pulse Rate 81 73 76 Respiratory Rate 24 22 26 H Blood Pressure 124/82 136/90 130/84 Pulse Oximetry 96 97 97 03/15/18 22:14 03/15/18 23:00 03/15/18 23:53 Temperature Pulse Rate 71 Respiratory Rate 16 20 16 Blood Pressure 118/81 Pulse Oximetry 96 03/16/18 00:00 03/16/18 01:00 03/16/18 02:00 Temperature 97.8 F Pulse Rate 67 73 75 Respiratory Rate 20 12 14 Blood Pressure 121/81 131/80 138/85 Pulse Oximetry 96 94 L 96 03/16/18 03:00 03/16/18 04:00 03/16/18 05:00 Temperature 97.9 F Pulse Rate 62 85 73 Respiratory Rate 11 L 40 H 25 H Blood Pressure 140/82 154/100 H Pulse Oximetry 97 96 97 03/16/18 06:00 03/16/18 07:00 03/16/18 07:33 Temperature Pulse Rate 59 L 66 72 Respiratory Rate 11 L 17 22 Blood Pressure 146/79 H 137/91 H 150/94 H Pulse Oximetry 97 98 98 03/16/18 07:46 03/16/18 08:00 03/16/18 09:00 Temperature 97.7 F Pulse Rate 69 72 70 Respiratory Rate 24 23 Blood Pressure 161/96 H 132/87 Pulse Oximetry 98 99 03/16/18 10:00 03/16/18 10:48 03/16/18 11:10 Temperature Pulse Rate 78 82 Respiratory Rate 24 20 Blood Pressure 131/83 154/84 H Pulse Oximetry 100 99 03/16/18 11:11 Temperature Pulse Rate 82 Respiratory Rate Blood Pressure Pulse Oximetry 98 Intake & Output 03/15/18 03/16/18 03/16/18 18:59 06:59 18:59 Intake Total 2900 / 2900 1380 / 1380 568 / 568 Output Total 1555 / 1555 1070 / 1070 Balance 1345 / 1345 310 / 310 568 / 568 Weight 101.2 kg Intake: IV 1400 / 1400 900 / 900 568 / 568 NS Inj 1,000 ML @ 84 mls/hr IV. 1000 / 1000 700 / 700 268 / 268 CONT .[id number] [facility] Rx#:[id number] Diflucan 400 mg Premix Bag 200 200 / 200 200 / 200 ML @ 100 mls/hr IV.SIG Q24H [facility] Rx#:[id number] Zosyn 4.5 GM Premix 4.5 gm In 200 / 200 200 / 200 100 / 100 100 ml @ 200 mls/hr IV.SIG Q6H [facility] Rx#:[id number] Oral 480 / 480 Anesthesia Amount 1500 / 1500 Output: Urine 400 / 400 Estimated Blood Loss 20 / 20 Urine Amount (Catheter) 825 / 825 900 / 900 Indwelling Urethral Catheter 825 / 825 900 / 900 Stool Amount (Stoma) 20 / 20 Right Lower Abdomen 20 / 20 Wound Drainage 310 / 310 150 / 150 # 1 Left Lower Anterior Abdomen 310 / 310 150 / 150 ORTEGA Drain Other: Date of Last Bowel Movement 03/14/18 03/14/18 03/16/18 Narrative: NAD Abd: moderate distention, inc c/d/i, ORTEGA ss output, ostomy dark red with brownish green liquid output - Urinary Catheter Management Indwelling Urethral Catheter Cath placed during this visit: yes, but has since been removed by the nurse Reason for continuing: Decision to DC catheter Insertion date: 03/15/18 Insertion time: 11:52 Removal date: 03/16/18 Removal time: 06:50 Results - Labs 03/16/18 03:45 03/16/18 03:45 Laboratory Results - last 24 hr 03/15/18 03/15/18 03/15/18 16:10 16:10 16:10 WBC 6.8 RBC 3.85 L Hgb 13.0 Hct 37.9 L MCV 98.3 MCH 33.8 MCHC 34.4 RDW 13.4 Plt Count 217 MPV 7.1 Neut % (Auto) 89.5 H Lymph % (Auto) 5.7 L [place] % (Auto) 4.3 Eos % (Auto) 0.2 Baso % (Auto) 0.3 Neut # (Auto) 6.0 Lymph # (Auto) 0.4 L [place] # (Auto) 0.3 Eos # (Auto) 0.0 Baso # (Auto) 0.0 WBC Differential . Differential Comment Auto diff final Sodium 138 Potassium 3.9 Chloride 107 Carbon Dioxide 23.8 Anion Gap 7 BUN 10 Creatinine 0.82 Estimated GFR Greater than 89 Random Glucose 147 H Lactic Acid 0.7 Calcium 7.4 L* D Calcium Adj for Albumin 8.6 Phosphorus Magnesium 2.2 Total Bilirubin 0.7 AST 16 ALT 17 Alkaline Phosphatase 83 Total Protein 6.9 D Albumin 2.5 L D 03/16/18 03/16/18 03:45 03:45 WBC 7.4 RBC 3.80 L Hgb 12.7 L Hct 36.8 L MCV 96.9 MCH 33.6 MCHC 34.6 RDW 13.7 Plt Count 224 MPV 7.1 Neut % (Auto) 83.6 H Lymph % (Auto) 7.8 L [place] % (Auto) 8.5 H Eos % (Auto) 0.0 Baso % (Auto) 0.1 Neut # (Auto) 6.2 Lymph # (Auto) 0.6 L [place] # (Auto) 0.6 Eos # (Auto) 0.0 Baso # (Auto) 0.0 WBC Differential . Differential Comment Auto diff final Sodium 140 Potassium 4.0 Chloride 107 Carbon Dioxide 24.3 Anion Gap 9 BUN 9 Creatinine 0.69 Estimated GFR Greater than 89 Random Glucose 137 H Lactic Acid Calcium 8.1 L Calcium Adj for Albumin Phosphorus 3.2 Magnesium 2.3 Total Bilirubin 0.5 AST 15 ALT 17 Alkaline Phosphatase 78 Total Protein 7.1 Albumin 2.7 L - Imaging Imaging: ITS Impressions Abdomen/Pelvis CT 03/15/18 00:24 CONCLUSION: 1. Acute perforated sigmoid diverticulitis with secondary involvement of 2 loops of adjacent small bowel. Pneumoperitoneum is noted. No abscess. Assessment and Plan - Assessment (1) Diverticulitis of colon with perforation Code(s): K57.20 - Diverticulitis of large intestine with perforation and abscess without bleeding Status: Acute - Plan POD 1 s/p lap washout and drainage perforated diverticulitis with diverting ileostomy. Stable post op. Fulls. Transfer to floor. DVT proph: heparin.
--- NOTE | 2018-03-16 19:56 | P.PNWCN ---
Wound Care Nurse Consult Description: Patient was seen today for new ostomy teaching for RLQ ileostomy. Communicated with: Patient, patient's spouse and RN Emy Sanchez [facility]. Recommendation: 1. Empty pouch when 1/3 to 1/2 full. 2. Change ostomy appliance every 3 to 5 days or as needed if leaking or dislodged. 3. Do not reinforce ostomy appliance with tape, change if leaking. Bowel Diversion Stoma - Bowel Stoma Right Lower Abdomen Stoma Diameter: 38 (~38 mm in diameter) Stoma Appearance: Dark Red, Protruding, Round Loop Supporting Will: Yes Collection Device: Two-piece, Cut to Fit Wafer Drainage Description: Liquid, Brown Wafer Size: 4 Inch Cut to Fit 100mm - Additional Information Additional Information: Patient seen for new ostomy teaching, Patient is alert, sitting up in recliner and ready for teaching. Education kit delivered. Stoma was visualized through transparent pouching system and presents red in color, protruding and with will in place. Stoma measures ~38 mm in diameter or 1 1/2 inches. There is a 4 inch two piece ostomy appliance in place that is dry and intact. Output in pouch is liquid and brown. Patient was instructed on emptying, closing pouch, How often to change and empty appliance. Type of surgery, and common complications. Patient also instructed on s/s of dehydration, Stoma color and output. Patient verbalizes understanding, will need further teaching.Patient is "overwhelmed" at this time. Will see patient tomorrow for continued ostomy teaching.
[2018-03-17] MEDS: dilTIAZem Inj 125 MG in Sodium Chlor 0.9% Inj 100 ML IV.CONT PRN ×2 (02:09→10:35)
[2018-03-17] MEDS: Ketorolac Inj 30 MG/ML (IVP) Vial IV.PUSH SCH ×4 (03:19→21:30)
[2018-03-17] MEDS: Piperacil/Tazo 4.5 GM Premix 4.5 GM/100 ML BAG IV.SIG SCH ×5 (03:19→21:32)
[2018-03-17] MEDS: Chlorhexidine Gluconate 2% 1 Pack (2 Cloths) TOPICAL SCH (04:10)
[2018-03-17] MEDS: Heparin - SQ 10,000 UNITS/ML Vial SQ SCH ×3 (04:12→21:29)
[2018-03-17] MEDS ORDERED: Metoprolol Tartrate 50 MG Tablet PO ONE (05:30)
[2018-03-17] MEDS: Famotidine PF Inj 20 MG/2 ML Vial IV.PUSH SCH ×2 (08:48→21:29)
[2018-03-17] MEDS ORDERED: dilTIAZem 30 MG Tablet PO SCH (09:19)
--- NOTE | 2018-03-17 09:23 | P.PNIM ---
Subjective Interval history: pt reportedly became nauseated and started vomiting. then noticed to be in afib/rvr. cardizem gtt started. Physical Exam Vital signs: Last Vital Signs Temp 99.7 F H 03/17/18 04:00 Pulse 131 H 03/17/18 04:00 Resp 18 03/17/18 04:00 BP 151/89 H 03/17/18 04:00 Pulse Ox 95 03/17/18 04:00 Narrative: heart irreg lung cta abd bs/ostomy. dark liquid stool. mild distention ext no edema Results Labs CBC & Chem 7: 03/16/18 03:45 03/16/18 03:45 Assessment and Plan Plan perferated diverticulitis s/p lap with HALI, abscess drainage, creation of ostomy new onset afib/rvr. possibley related to intraabdomenal process, n/v overnight.. cont iv abx prn pain control on full liquid. diet advancement per gen surg PT and oob. dvt prophylaxis with sq heparin. kub to assess for bowel distention 2d echo to assess cardiac anatomy with new afib. check electrolytes and tsh. start po diltiazem and wean off cardizem gtt. hold transfer to med/surg. Progress Note: Quality VTE Deep Vein Thrombosis/Pulmonary Embolism Present on Admission: No
[2018-03-17 11:32] LABS: Anion Gap 6 meq/L (5-15); Blood Urea Nitrogen 11 mg/dL (7-18); Calcium 8.5 mg/dL (8.5-10.1); Carbon Dioxide 27.4 meq/L (21.0-32.0); Chloride 107 meq/L (98-107); Glomerular Filtration Rate Greater Than 89 mL/min (>89); Glucose,Random 155 mg/dL (74-106); Magnesium 2.4 mg/dL (1.5-2.5); Potassium 3.6 meq/L (3.5-5.1); Sodium 140 meq/L (136-145)
[2018-03-17 11:41] LABS: Thyroid Stimulating Hormone 0.248 uIU/mL (0.358-3.740)
[2018-03-17 12:44] LABS: Baso # (Auto) 0.1 th/mm3 (0.0-0.2); Baso % (Auto) 0.4 % (0.0-2.0); Eos # (Auto) 0.1 th/mm3 (0.0-0.4); Eos % (Auto) 0.5 % (0.0-4.0); Hemoglobin 14.4 gm/dL (13.0-17.0); Lymph # (Auto) 1.5 th/mm3 (1.0-4.8); Lymph % (Auto) 12.3 % (9.0-44.0); Mean Corpuscular HGB Conc 34.3 % (32.0-36.0); Mean Corpuscular Hemoglobin 33.7 pg (27.0-34.0); Mean Corpuscular Volume 98.1 fL (80.0-100.0); Mean Platelet Volume 7.9 fL (7.0-11.0); Mono # (Auto) 1.2 th/mm3 (0.0-0.9); Mono % (Auto) 10.2 % (0.0-8.0); Neut # (Auto) 9.1 th/mm3 (1.8-7.7); Neut % (Auto) 76.6 % (16.0-70.0); Platelet Count 340 th/mm3 (150-450); Red Blood Count 4.28 mil/mm3 (4.50-5.90); Red Cell Distribution Width 14.1 % (11.6-17.2); White Blood Count 11.9 th/mm3 (4.0-11.0)
--- NOTE | 2018-03-17 13:16 | P.PNWCN ---
Wound Care Nurse Consult Description: Patient was seen today for new ostomy teaching for RLQ ileostomy. Communicated with: Patient and spouse Recommendation: 1. Empty pouch when 1/3 to 1/2 full. 2. Change ostomy appliance every 3 to 5 days or as needed if leaking or dislodged. 3. Do not reinforce ostomy appliance with tape, change if leaking. Bowel Diversion Stoma - Bowel Stoma Right Lower Abdomen Stoma Diameter: 38 (~38 mm in diameter) Stoma Appearance: Dark Red Loop Supporting Will: Yes Collection Device: Cut to Fit Wafer Drainage Description: Liquid, Brown Wafer Size: 4 Inch Cut to Fit 100mm - Additional Information Additional Information: Patient seen on for continued teaching of ileostomy care and teaching. Patient's spouse is in room during teaching. Stoma is visualized today through transparent pouch and presents today as red, protruding with will in place. Patient's two piece ostomy appliance is dry and intact . Reinforced teaching today on stoma appearance, how often to change ostomy appliance, how often to empty appliance and reviewed types of appliances. Patient verbalizes understanding. Will continue with teaching tomorrow. Will change ostomy appliance tomorrow with patient.
--- NOTE | 2018-03-17 13:39 | XR ---
EXAM DATE: 03/17/2018 9:54 AM EST AGE/SEX: 47 years / Male INDICATIONS: Vomiting. CLINICAL DATA: This is the patient's initial encounter. Patient reports that signs and symptoms have been present for 1 day and indicates a pain score of 3/10. MEDICAL/SURGICAL HISTORY: None. None. COMPARISON: No prior exams available for comparison. FINDINGS: A surgical drain overlies the lower abdomen. There appears to be an ileostomy in the right lower josefina drant. There is moderate gaseous distention of multiple small bowel loops in the mid and upper abdome n with diameters approaching 5 cm. Pneumoperitoneum would be consistent with the recent surgery. The colon appears decompressed. No suspicious calcific densities are identified. Regional skeleton is jonas ssly intact. CONCLUSION: Postoperative abdomen appearance with moderate distention of small bowel loops. Electronically signed by: Owen Bermudez MD Board Certified Radiologist 03/17/2018 1:38 PM EST
--- NOTE | 2018-03-17 13:40 | P.PNGS ---
Subjective Interval history: He had a fib with rvr overnight as well as emesis. He feels ok this morning but does complain of mild chest pressure and shortness of breath. Physical Exam Vital signs: Vital Signs 03/16/18 14:00 03/16/18 15:00 03/16/18 15:44 Temperature Pulse Rate 79 81 88 Respiratory Rate 20 24 Blood Pressure 144/96 H 138/94 H Pulse Oximetry 99 99 03/16/18 16:00 03/16/18 17:00 03/16/18 18:00 Temperature 98.0 F Pulse Rate 80 86 83 Respiratory Rate 23 23 22 Blood Pressure 152/80 H 146/93 H Pulse Oximetry 100 99 98 03/16/18 19:00 03/16/18 20:00 03/16/18 20:05 Temperature 97.7 F Pulse Rate 85 96 H 86 Respiratory Rate 19 24 22 Blood Pressure 158/90 H 165/118 H 157/89 H Pulse Oximetry 99 99 100 03/17/18 00:00 03/17/18 03:00 03/17/18 04:00 Temperature 98.4 F 99.7 F H Pulse Rate 84 133 H 131 H Respiratory Rate 21 18 Blood Pressure 157/89 H 151/89 H Pulse Oximetry 97 95 03/17/18 04:19 03/17/18 04:34 03/17/18 04:49 Temperature Pulse Rate 133 H 130 H 139 H Respiratory Rate 16 19 17 Blood Pressure 145/87 H 150/85 H 136/80 Pulse Oximetry 95 94 L 94 L 03/17/18 05:00 03/17/18 05:04 03/17/18 05:19 Temperature Pulse Rate 134 H 133 H 130 H Respiratory Rate 18 18 19 Blood Pressure 165/86 H 157/80 H Pulse Oximetry 94 L 94 L 93 L 03/17/18 05:34 03/17/18 05:49 03/17/18 06:00 Temperature Pulse Rate 124 H 139 H 135 H Respiratory Rate 18 21 20 Blood Pressure 144/87 H 143/91 H Pulse Oximetry 93 L 94 L 94 L 03/17/18 06:04 03/17/18 06:19 03/17/18 06:34 Temperature Pulse Rate 135 H 130 H 128 H Respiratory Rate 20 19 23 Blood Pressure 146/80 H 154/95 H 138/93 H Pulse Oximetry 94 L 94 L 94 L 03/17/18 06:49 03/17/18 07:00 03/17/18 07:04 Temperature Pulse Rate 109 H 108 H 109 H Respiratory Rate 18 18 17 Blood Pressure 129/79 136/83 Pulse Oximetry 95 95 94 L 03/17/18 07:19 03/17/18 07:34 03/17/18 07:49 Temperature Pulse Rate 107 H 104 H 113 H Respiratory Rate 16 15 23 Blood Pressure 146/90 H 138/78 138/86 Pulse Oximetry 95 95 96 03/17/18 08:00 03/17/18 08:04 03/17/18 08:19 Temperature 98.4 F Pulse Rate 101 H 97 H 97 H Respiratory Rate 17 16 17 Blood Pressure 130/82 128/89 Pulse Oximetry 94 L 95 95 03/17/18 08:34 03/17/18 08:49 03/17/18 09:00 Temperature Pulse Rate 98 H 96 H 108 H Respiratory Rate 16 17 19 Blood Pressure 124/87 138/98 H Pulse Oximetry 95 95 95 03/17/18 09:04 03/17/18 09:19 03/17/18 09:34 Temperature Pulse Rate 104 H 101 H 115 H Respiratory Rate 17 20 28 H Blood Pressure 150/112 H 141/83 H 128/88 Pulse Oximetry 94 L 95 94 L 03/17/18 09:49 03/17/18 10:00 03/17/18 10:04 Temperature Pulse Rate 114 H 113 H 106 H Respiratory Rate 29 H 23 23 Blood Pressure 134/95 H 155/126 H Pulse Oximetry 95 95 96 03/17/18 10:19 03/17/18 10:34 03/17/18 10:49 Temperature Pulse Rate 102 H 101 H 96 H Respiratory Rate 25 H 22 22 Blood Pressure 116/89 130/95 H 116/88 Pulse Oximetry 95 96 97 03/17/18 11:00 03/17/18 11:04 03/17/18 11:19 Temperature Pulse Rate 104 H 90 91 H Respiratory Rate 25 H 24 23 Blood Pressure 125/83 115/80 Pulse Oximetry 96 96 96 03/17/18 11:34 03/17/18 12:38 Temperature 98.0 F Pulse Rate 90 119 H Respiratory Rate 22 32 H Blood Pressure 114/78 77/55 L Pulse Oximetry 96 96 Intake & Output 03/16/18 03/17/18 03/17/18 18:59 06:59 18:59 Intake Total 1268 / 1268 400 / 400 125 / 125 Output Total 700 / 700 905 / 905 Balance 568 / 568 -505 / -505 125 / 125 Weight 101.2 kg Intake: IV 668 / 668 200 / 200 125 / 125 NS Inj 1,000 ML @ 84 mls/hr IV. 268 / 268 CONT .[id number] RODGER Rx#:[id number] Cardizem Inj 125 MG In NS Inj 125 / 125 100 ML @ 5 MG/HR 5 mls/hr IV. CONT TITRATE PRN Rx#:[id number] Diflucan 400 mg Premix Bag 200 200 / 200 ML @ 100 mls/hr IV.SIG Q24H RODGER Rx#:[id number] Zosyn 4.5 GM Premix 4.5 gm In 200 / 200 200 / 200 100 ml @ 200 mls/hr IV.SIG Q6H RODGER Rx#:[id number] Oral 600 / 600 200 / 200 Output: Urine 700 / 700 175 / 175 Emesis 300 / 300 Stool Amount (Stoma) 50 / 50 Right Lower Abdomen 50 / 50 Wound Drainage 380 / 380 # 1 Left Lower Anterior Abdomen 380 / 380 ORTEGA Drain Other: Date of Last Bowel Movement 03/16/18 03/16/18 03/17/18 # Emeses 1 Narrative: NAD, sitting in chair Abd: soft, distended, ostomy dark pink with maroon output CV: mild tachy irregular rhythm - Urinary Catheter Management Indwelling Urethral Catheter Cath placed during this visit: yes, but has since been removed by the nurse Reason for continuing: Decision to DC catheter Insertion date: 03/15/18 Insertion time: 11:52 Removal date: 03/16/18 Removal time: 06:50 Results - Labs 03/17/18 11:58 03/17/18 10:30 Laboratory Results - last 24 hr 03/17/18 03/17/18 10:30 11:58 WBC 11.9 H RBC 4.28 L Hgb 14.4 Hct 42.0 MCV 98.1 MCH 33.7 MCHC 34.3 RDW 14.1 Plt Count 340 D MPV 7.9 Neut % (Auto) 76.6 H Lymph % (Auto) 12.3 Graham % (Auto) 10.2 H Eos % (Auto) 0.5 Baso % (Auto) 0.4 Neut # (Auto) 9.1 H Lymph # (Auto) 1.5 Graham # (Auto) 1.2 H Eos # (Auto) 0.1 Baso # (Auto) 0.1 WBC Differential . Differential Comment Auto diff final Sodium 140 Potassium 3.6 Chloride 107 Carbon Dioxide 27.4 Anion Gap 6 BUN 11 Creatinine 0.84 Estimated GFR Greater than 89 Random Glucose 155 H Calcium 8.5 Magnesium 2.4 TSH 0.248 L - Imaging Imaging: ITS Impressions Abdomen/Pelvis CT 03/15/18 00:24 CONCLUSION: 1. Acute perforated sigmoid diverticulitis with secondary involvement of 2 loops of adjacent small bowel. Pneumoperitoneum is noted. No abscess. Assessment and Plan - Plan POD 2 s/p lap washout and drainage perforated diverticulitis with diverting ileostomy. A fib with RVR, on cardizem gtt. Ileus. Clears. reglan. If persistent emesis will need ngt. A fib with rvr with some chest pressure. D/w Stacy [employer] will check EKG, enzymes. DVT proph: heparin.
[2018-03-17] MEDS: Sod Chloride 0.9% Inj 1,000 ML IV.CONT SCH ×2 (14:00→21:32)
--- NOTE | 2018-03-17 14:33 | P.CONCA ---
History of Present Illness Service: cp cardiology Consult date: 03/17/18 Requesting Physician: Ramesh Gill Reason for Consult: post operative Atrial fibrillation Primary Care Provider: Manuel Snow Chief Complaint: post operative atrial fibrillation History of Present Illness: 47 yo gentleman with no prior medical history presented to [facility] ER with abdominal pain x 3-4 days and was found to have diverticulitis complicated by perforation and peritonitis. He underwent lap with HALI, abscess drainage, and creation of ostomy on 03/15/2018. He has been maintained on emperic antibiotics and early hours today he became nauseaus and vomited and later was found to develop atrial fibrillation with rapid ventricular rate. He was started on a cardizem gtt which was transitioned to diltiazem 30mg po q6hr with reasonable HR control. He is currently undergoing echocardiogram study and by initial evaluation appears to be a normal study. He is feeling quite well considering recent events and denies any chest pain, palpitations, dyspnea, or significant abdominal pains. ECG shows AF with RVR, iRBBB and nonspecific diffuse st-t wave abnormality Review of Systems All other systems reviewed negative except as stated in HPI [facility] - History History Provided By: Patient - Medical History Medical History: Medical History (Last Reviewed 03/16/18 @ 10:21 by Mikayla Solano) Herniated disc - Surgical History Surgical History: Surgical History (Last Reviewed 03/16/18 @ 10:21 by Mikayla Solano) No history of previous surgery - Tobacco History Second Hand Smoke Exposure: No Tobacco Use In Past 30 Days: No Smoking Status: Never smoker - Alcohol History How Often Do You Have a Drink Containing Alcohol: 2 to 3 times a week - Substance Use History Substance History: No History of Abuse - Travel History Recent Travel in the [place] Within the Last 8 Weeks: No Recent Travel Out of the Country Within the Last 8 Weeks: No - Immunization History Tetanus Immunization: Never Vaccinated Hx Influenza Vaccine This Season: No Medications and Allergies Active Medications: Active Medications Acetaminophen (Tylenol) 650 mg PO Q6H PRN PRN Reason: PAIN 1-10 AND/OR FEVER >101F Albuterol (Duoneb Neb (Prn)) 1 ampul NEB Q2HR NEB PRN PRN Reason: WHEEZING Bisacodyl (Dulcolax Supp) 10 mg RECTAL DAILY PRN PRN Reason: SEVERE CONSITIPATION Chlorhexidine Gluconate (Chlorhexidine 2% Cloth) 3 pack TOPICAL DAILY@0400 [facility] Stop: 03/20/18 03:59 Last Admin: 03/17/18 04:10 Dose: Not Given Chlorhexidine Gluconate (Chlorhexidine 2% Cloth) 3 pack TOPICAL DAILY@0400 PRN PRN Reason: Extra cloth needed Stop: 03/20/18 03:59 Famotidine (Pepcid Pf Inj) 20 mg IV.PUSH Q12HR [facility] Last Admin: 03/17/18 08:48 Dose: 20 mg Heparin Sodium (Porcine) (Heparin Inj) 5,000 units SQ Q8H [facility] Last Admin: 03/17/18 04:12 Dose: 5,000 units Piperacillin/Tazobactam/Dextrose (Zosyn 4.5 Gm Premix) 4.5 gm in 100 mls @ 200 mls/hr IV.SIG ONCE [facility] Last Admin: 03/17/18 03:19 Dose: 200 mls/hr Piperacillin/Tazobactam/Dextrose (Zosyn 4.5 Gm Premix) 4.5 gm in 100 mls @ 200 mls/hr IV.SIG Q6H [facility] Last Admin: 03/17/18 08:48 Dose: 200 mls/hr Magnesium Sulfate 4 gm/ Sodium (Chloride) 100 mls @ 50 mls/hr IV.SIG UNSCH PRN PRN Reason: For Magnesium 0.9 - 1.1 mg/dL Magnesium Sulfate 2 gm/ Sodium (Chloride) 100 mls @ 50 mls/hr IV.SIG UNSCH PRN PRN Reason: For Magnesium 1.2 - 1.6 mg/dL Potassium Chloride (Kcl 40 Meq Premix Inj) 40 meq in 100 mls @ 25 mls/hr IV.SIG Q2H PRN PRN Reason: For Potassium 2.8 - 3.2 mEq/L Potassium Chloride (Kcl 20 Meq Premix Inj) 20 meq in 100 mls @ 50 mls/hr IV.SIG Q2H PRN PRN Reason: For Potassium 3.3 - 3.5 mEq/L Potassium Chloride (Kcl 40 Meq Premix Inj) 40 meq in 100 mls @ 25 mls/hr IV.SIG UNSCH PRN PRN Reason: For Potassium 3.3 - 3.5 mEq/L Potassium Phosphate 30 mmol/ (Sodium Chloride) 260 mls @ 42 mls/hr IV.SIG UNSCH PRN PRN Reason: SEE LABEL COMMENTS Sodium Phosphate 30 mmol/ (Sodium Chloride) 260 mls @ 42 mls/hr IV.SIG UNSCH PRN PRN Reason: For Phosphorus < 2.5 mg/dL Potassium Chloride (Kcl 20 Meq Premix Inj) 20 meq in 100 mls @ 50 mls/hr IV.SIG Q2H PRN PRN Reason: For Potassium 2.8 - 3.2 mEq/L Diltiazem HCl 125 mg/ Sodium (Chloride) 125 mls @ 5 mls/hr IV.CONT TITRATE PRN ; Protocol PRN Reason: Per Protocol Last Admin: 03/17/18 10:35 Dose: 15 mg/hr, 15 mls/hr Sodium Chloride (Ns Inj) 1,000 mls @ 125 mls/hr IV.CONT .Q8H RODGER Ketorolac Tromethamine (Toradol Inj) 30 mg IV.PUSH Q6H [facility] Stop: 03/20/18 14:59 Last Admin: 03/17/18 08:48 Dose: 30 mg Lactulose (Lactulose Liq) 30 ml PO DAILY PRN PRN Reason: SEVERE CONSITIPATION Metoclopramide HCl (Reglan Inj) 10 mg IV.PUSH Q8H [facility]; Protocol Ondansetron HCl (Zofran Inj) 4 mg IV.PUSH Q6H PRN PRN Reason: NAUSEA OR VOMITING Oxycodone HCl (Roxicodone) 5 mg PO Q4H PRN PRN Reason: PAIN SCALE 1 TO 5 Oxycodone HCl (Roxicodone) 10 mg PO Q6H PRN PRN Reason: PAIN SCALE 6 TO 10 Sodium Chloride (Ns Flush) 2 ml IV.FLUSH BID [facility] Last Admin: 03/17/18 08:48 Dose: 2 ml Sodium Chloride (Ns Flush) 2 ml IV.FLUSH PRN PRN PRN Reason: FLUSH AFTER USING IV ACCESS Temazepam (Restoril) 15 mg PO HS PRN PRN Reason: INSOMNIA Allergies Allergy/AdvReac Type Severity Reaction Status Date / Time No Known Allergies Allergy Verified 03/15/18 00:07 Home Medications Medication Instructions Recorded Confirmed Type No Known Home Medications 03/15/18 03/15/18 History Exam Vital signs: Vital Signs 03/16/18 15:00 03/16/18 15:44 03/16/18 16:00 Temperature 98.0 F Pulse Rate 81 88 80 Respiratory Rate 24 23 Blood Pressure 138/94 H 152/80 H Pulse Oximetry 99 100 03/16/18 17:00 03/16/18 18:00 03/16/18 19:00 Temperature Pulse Rate 86 83 85 Respiratory Rate 23 22 19 Blood Pressure 146/93 H 158/90 H Pulse Oximetry 99 98 99 03/16/18 20:00 03/16/18 20:05 03/17/18 00:00 Temperature 97.7 F 98.4 F Pulse Rate 96 H 86 84 Respiratory Rate 24 22 21 Blood Pressure 165/118 H 157/89 H 157/89 H Pulse Oximetry 99 100 97 03/17/18 03:00 03/17/18 04:00 03/17/18 04:19 Temperature 99.7 F H Pulse Rate 133 H 131 H 133 H Respiratory Rate 18 16 Blood Pressure 151/89 H 145/87 H Pulse Oximetry 95 95 03/17/18 04:34 03/17/18 04:49 03/17/18 05:00 Temperature Pulse Rate 130 H 139 H 134 H Respiratory Rate 19 17 18 Blood Pressure 150/85 H 136/80 Pulse Oximetry 94 L 94 L 94 L 03/17/18 05:04 03/17/18 05:19 03/17/18 05:34 Temperature Pulse Rate 133 H 130 H 124 H Respiratory Rate 18 19 18 Blood Pressure 165/86 H 157/80 H 144/87 H Pulse Oximetry 94 L 93 L 93 L 03/17/18 05:49 03/17/18 06:00 03/17/18 06:04 Temperature Pulse Rate 139 H 135 H 135 H Respiratory Rate 21 20 20 Blood Pressure 143/91 H 146/80 H Pulse Oximetry 94 L 94 L 94 L 03/17/18 06:19 03/17/18 06:34 03/17/18 06:49 Temperature Pulse Rate 130 H 128 H 109 H Respiratory Rate 19 23 18 Blood Pressure 154/95 H 138/93 H 129/79 Pulse Oximetry 94 L 94 L 95 03/17/18 07:00 03/17/18 07:04 03/17/18 07:19 Temperature Pulse Rate 108 H 109 H 107 H Respiratory Rate 18 17 16 Blood Pressure 136/83 146/90 H Pulse Oximetry 95 94 L 95 03/17/18 07:34 03/17/18 07:49 03/17/18 08:00 Temperature 98.4 F Pulse Rate 104 H 113 H 101 H Respiratory Rate 15 23 17 Blood Pressure 138/78 138/86 Pulse Oximetry 95 96 94 L 03/17/18 08:04 03/17/18 08:19 03/17/18 08:34 Temperature Pulse Rate 97 H 97 H 98 H Respiratory Rate 16 17 16 Blood Pressure 130/82 128/89 124/87 Pulse Oximetry 95 95 95 03/17/18 08:49 03/17/18 09:00 03/17/18 09:04 Temperature Pulse Rate 96 H 108 H 104 H Respiratory Rate 17 19 17 Blood Pressure 138/98 H 150/112 H Pulse Oximetry 95 95 94 L 03/17/18 09:19 03/17/18 09:34 03/17/18 09:49 Temperature Pulse Rate 101 H 115 H 114 H Respiratory Rate 20 28 H 29 H Blood Pressure 141/83 H 128/88 134/95 H Pulse Oximetry 95 94 L 95 03/17/18 10:00 03/17/18 10:04 03/17/18 10:19 Temperature Pulse Rate 113 H 106 H 102 H Respiratory Rate 23 23 25 H Blood Pressure 155/126 H 116/89 Pulse Oximetry 95 96 95 03/17/18 10:34 03/17/18 10:49 03/17/18 11:00 Temperature Pulse Rate 101 H 96 H 104 H Respiratory Rate 22 22 25 H Blood Pressure 130/95 H 116/88 Pulse Oximetry 96 97 96 03/17/18 11:04 03/17/18 11:19 03/17/18 11:34 Temperature Pulse Rate 90 91 H 90 Respiratory Rate 24 23 22 Blood Pressure 125/83 115/80 114/78 Pulse Oximetry 96 96 96 03/17/18 12:38 Temperature 98.0 F Pulse Rate 119 H Respiratory Rate 32 H Blood Pressure 77/55 L Pulse Oximetry 96 Intake & Output 03/16/18 03/17/18 03/17/18 18:59 06:59 18:59 Intake Total 1268 / 1268 400 / 400 125 / 125 Output Total 700 / 700 905 / 905 Balance 568 / 568 -505 / -505 125 / 125 Weight 101.2 kg Intake: IV 668 / 668 200 / 200 125 / 125 NS Inj 1,000 ML @ 84 mls/hr IV. 268 / 268 CONT .[id number] RODGER Rx#:[id number] Cardizem Inj 125 MG In NS Inj 125 / 125 100 ML @ 5 MG/HR 5 mls/hr IV. CONT TITRATE PRN Rx#:[id number] Diflucan 400 mg Premix Bag 200 200 / 200 ML @ 100 mls/hr IV.SIG Q24H RODGER Rx#:[id number] Zosyn 4.5 GM Premix 4.5 gm In 200 / 200 200 / 200 100 ml @ 200 mls/hr IV.SIG Q6H RODGER Rx#:[id number] Oral 600 / 600 200 / 200 Output: Urine 700 / 700 175 / 175 Emesis 300 / 300 Stool Amount (Stoma) 50 / 50 Right Lower Abdomen 50 / 50 Wound Drainage 380 / 380 # 1 Left Lower Anterior Abdomen 380 / 380 ORTEGA Drain Other: Date of Last Bowel Movement 03/16/18 03/16/18 03/17/18 # Emeses 1 Narrative: GENERAL: AO x 3 and comfortable. SKIN: Warm and dry. HEAD: Atraumatic. Normocephalic. EYES: Pupils equal and round. No scleral icterus. No injection or drainage. ENT: No nasal bleeding or discharge. Mucous membranes pink and moist. NECK: Trachea midline. No JVD. CARDIOVASCULAR: Regular rate and irregular rhythm. no murmur RESPIRATORY: No accessory muscle use. Clear to auscultation. Breath sounds equal bilaterally. GASTROINTESTINAL: Abdomen soft, mildly-tender, moderately distended. s/p ostomy with bag and green liquid output. MUSCULOSKELETAL: Extremities without clubbing, cyanosis, or edema. No obvious deformities. NEUROLOGICAL: Awake and alert. No obvious cranial nerve deficits. Motor grossly within normal limits. Five out of 5 muscle strength in the arms and legs. Normal speech. PSYCHIATRIC: Appropriate mood and affect; insight and judgment normal. Results 03/17/18 11:58 03/17/18 10:30 Cardiac Enzymes 03/15/18 03/16/18 Range/Units 16:10 03:45 AST 16 15 (15-37) U/L CBC 03/15/18 03/16/18 03/17/18 Range/Units 16:10 03:45 11:58 WBC 6.8 7.4 11.9 H (4.0-11.0) th/mm3 RBC 3.85 L 3.80 L 4.28 L (4.50-5.90) mil/mm3 Hgb 13.0 12.7 L 14.4 (13.0-17.0) gm/dL Hct 37.9 L 36.8 L 42.0 (39.0-51.0) % Plt Count 217 224 340 D (150-450) th/mm3 Neut # (Auto) 6.0 6.2 9.1 H (1.8-7.7) th/mm3 Lymph # (Auto) 0.4 L 0.6 L 1.5 (1.0-4.8) th/mm3 Loving # (Auto) 0.3 0.6 1.2 H (0.0-0.9) th/mm3 Eos # (Auto) 0.0 0.0 0.1 (0.0-0.4) th/mm3 Baso # (Auto) 0.0 0.0 0.1 (0.0-0.2) th/mm3 Comprehensive Metabolic Panel 03/15/18 03/16/18 03/17/18 Range/Units 16:10 03:45 10:30 Sodium 138 140 140 (136-145) meq/L Potassium 3.9 4.0 3.6 (3.5-5.1) meq/L Chloride 107 107 107 (98-107) meq/L Carbon Dioxide 23.8 24.3 27.4 (21.0-32.0) meq/L BUN 10 9 11 (7-18) mg/dL Creatinine 0.82 0.69 0.84 (0.60-1.30) mg/dL Calcium 7.4 L* D 8.1 L 8.5 (8.5-10.1) mg/dL AST 16 15 (15-37) U/L ALT 17 17 (12-78) U/L Alkaline Phosphatase 83 78 (45-117) U/L Total Protein 6.9 D 7.1 (6.4-8.2) g/dL Albumin 2.5 L D 2.7 L (3.4-5.0) g/dL Intake and Output 03/16/18 03/17/18 03/17/18 22:59 06:59 14:59 Intake Total 800 / 800 300 / 300 125 / 125 Output Total 820 / 820 785 / 785 Balance -20 / -20 -485 / -485 125 / 125 Intake: IV 200 / 200 100 / 100 125 / 125 Cardizem Inj 125 MG In NS Inj 125 / 125 100 ML @ 5 MG/HR 5 mls/hr IV. CONT TITRATE PRN Rx#:[id number] Zosyn 4.5 GM Premix 4.5 gm In 200 / 200 100 / 100 100 ml @ 200 mls/hr IV.SIG Q6H RODGER Rx#:[id number] Oral 600 / 600 200 / 200 Output: Urine 700 / 700 175 / 175 Emesis 300 / 300 Stool Amount (Stoma) 50 / 50 Right Lower Abdomen 50 / 50 Wound Drainage 70 / 70 310 / 310 # 1 Left Lower Anterior Abdomen 70 / 70 310 / 310 ORTEGA Drain Other: Date of Last Bowel Movement 03/16/18 03/16/18 03/17/18 # Emeses 1 Weight 101.2 kg - Imaging and Cardiology Imaging: Impressions Abdomen X-Ray 03/17/18 00:00 CONCLUSION: Postoperative abdomen appearance with moderate distention of small bowel loops. Assessment and Plan - Plan Assessment: Post-operative atrial fibrillation Diverticulitis complicated by perforated diverticulum and now s/p Lap BRITISH, washout and ostomy formation Recommendations: -d/c diltiazem -attempt at pharmacologic cardioversion with amiodarone via gtt given bowel surgery and questionable absorption of oral medication at this juncture. Hold on anticoagulation therapy at this time due to CHADS2-VASc score 0 and bleeding risk s/p surgical procedure 03/15. -continue amiodarone for now and if successful cardioversion, would continue gtt at 0.5mg/min for next 5 days if maintained inpatient. If plan to d/c prior to next 5 days, would transition amiodarone to 400mg po bid for total duration of amiodarone therapy of 5-7 days. -outpatient cardiology follow up in next 4-6 weeks.
[2018-03-17] MEDS ORDERED: Amiodarone Inj 150 MG in Dextrose 5% in Water Inj 97 ML IV.SIG ONE ×2 (15:00)
--- NOTE | 2018-03-17 16:07 | ECHRPT ---
Indication: ATRIAL FIB/FLUTTER CONCLUSIONS Normal left ventricular size. Wall thickness is normal. The left ventricular systolic function is normal with an estimated ejection fraction in the range of 55-60%. LVOT is measured at 2.4 cm Proximal ascending aorta is at the upper limits of normal measuring 3.5 cm. Trace mitral valve regurgitation. The estimated pulmonary arterial pressure is 43 mmHg. BP: / HR: Rhythm: MEASUREMENTS (Male / Female) Normal Values Technical Quality: 2D ECHO LV Diastolic Diameter PLAX 5.1 cm 4.2 - 5.9 / 3.9 - 5.3 cm LV Systolic Diameter PLAX 3.9 cm IVS Diastolic Thickness 1.0 cm 0.6 - 1.0 / 0.6 - 0.9 cm LVPW Diastolic Thickness 0.9 cm 0.6 - 1.0 / 0.6 - 0.9 cm LV Relative Wall Thickness 0.4 RV Internal Dim ED PLAX 3.2 cm LVOT Diameter 2.4 cm Aortic Root Diameter 3.8 cm M-MODE AV Cusp Separation MM 2.1 cm DOPPLER AV Peak Velocity 138.0 cm/s AV Peak Gradient 7.6 mmHg LVOT Peak Velocity 92.8 cm/s LVOT Peak Gradient 3.4 mmHg AV Area Cont Eq pk 3.0 cm Mitral E Point Velocity 85.9 cm/s LV E' Lateral Velocity 18.0 cm/s Mitral E to LV E' Lateral Ratio 4.8 LV E' Septal Velocity 20.2 cm/s Mitral E to LV E' Septal Ratio 4.3 TR Peak Velocity 288.0 cm/s TR Peak Gradient 33.2 mmHg Right Atrial Pressure 10.0 mmHg Pulmonary Artery Systolic Pressu 43.2 mmHg Right Ventricular Systolic Press 43.2 mmHg PV Peak Velocity 115.0 cm/s PV Peak Gradient 5.3 mmHg FINDINGS LEFT VENTRICLE Normal left ventricular size. Wall thickness is normal. The left ventricular systolic function is normal with an estimated ejection fraction in the range of 55-60%. RIGHT VENTRICLE Normal right ventricular size and systolic function. LEFT ATRIUM The left atrial size is normal. RIGHT ATRIUM The right atrial size is normal. ATRIAL SEPTUM Normal atrial septal thickness without atrial level shunting by limited color doppler interrogation. AORTA LVOT is measured at 2.4 cm Proximal ascending aorta is at the upper limits of normal measuring 3.5 cm. MITRAL VALVE Trace mitral valve regurgitation. AORTIC VALVE Trileaflet aortic valve. No aortic valve stenosis or regurgitation. TRICUSPID VALVE The estimated pulmonary arterial pressure is 43 mmHg. PULMONARY VALVE No pulmonary valve regurgitation or stenosis. VESSELS The inferior vena cava is normal in size. PERICARDIUM No pericardial effusion. Everardo Rossi MD, FACC, [facility] (Electronically Signed) Final Date:17 March 2018 16:06
--- NOTE | 2018-03-17 16:43 | ECG ---
Date Performed: 03/17/2018 Time Performed: 01:11:14 PTAGE: 47 years EKG: Atrial fibrillation with rapid ventricular response. Incomplete RBBB Extensive ST-T changes may be due to myocardial ischemia Abnormal ECG NO PREVIOUS TRACING DOCTOR: Griffin Peterson Interpretating Date/Time 03/17/2018 16:41:03
[2018-03-18] MEDS: Ketorolac Inj 30 MG/ML (IVP) Vial IV.PUSH SCH ×4 (04:35→21:19)
[2018-03-18] MEDS: Heparin - SQ 10,000 UNITS/ML Vial SQ SCH ×3 (04:36→21:18)
[2018-03-18] MEDS: Piperacil/Tazo 4.5 GM Premix 4.5 GM/100 ML BAG IV.SIG SCH ×5 (04:38→21:30)
[2018-03-18] MEDS: Chlorhexidine Gluconate 2% 1 Pack (2 Cloths) TOPICAL SCH (04:38)
--- NOTE | 2018-03-18 08:33 | P.PNCA ---
Subjective Interval history: Received amiodarone bolus yesterday afternoon. Amiodarone gtt. started early in the a.m. Patient remains in A. fib with rate around 120. No chest pain, shortness breath, palpitations. Medications and Allergies Active Medications: Active Medications Acetaminophen (Tylenol) 650 mg PO Q6H PRN PRN Reason: PAIN 1-10 AND/OR FEVER >101F Albuterol (Duoneb Neb (Prn)) 1 ampul NEB Q2HR NEB PRN PRN Reason: WHEEZING Bisacodyl (Dulcolax Supp) 10 mg RECTAL DAILY PRN PRN Reason: SEVERE CONSITIPATION Chlorhexidine Gluconate (Chlorhexidine 2% Cloth) 3 pack TOPICAL DAILY@0400 [facility] Stop: 03/20/18 03:59 Last Admin: 03/18/18 04:38 Dose: 3 pack Chlorhexidine Gluconate (Chlorhexidine 2% Cloth) 3 pack TOPICAL DAILY@0400 PRN PRN Reason: Extra cloth needed Stop: 03/20/18 03:59 Famotidine (Pepcid Pf Inj) 20 mg IV.PUSH Q12HR [facility] Last Admin: 03/17/18 21:29 Dose: 20 mg Heparin Sodium (Porcine) (Heparin Inj) 5,000 units SQ Q8H [facility] Last Admin: 03/18/18 04:36 Dose: 5,000 units Piperacillin/Tazobactam/Dextrose (Zosyn 4.5 Gm Premix) 4.5 gm in 100 mls @ 200 mls/hr IV.SIG ONCE [facility] Last Infusion: 03/17/18 03:49 Dose: Infused Piperacillin/Tazobactam/Dextrose (Zosyn 4.5 Gm Premix) 4.5 gm in 100 mls @ 200 mls/hr IV.SIG Q6H [facility] Last Infusion: 03/18/18 05:08 Dose: Infused Magnesium Sulfate 4 gm/ Sodium (Chloride) 100 mls @ 50 mls/hr IV.SIG UNSCH PRN PRN Reason: For Magnesium 0.9 - 1.1 mg/dL Magnesium Sulfate 2 gm/ Sodium (Chloride) 100 mls @ 50 mls/hr IV.SIG UNSCH PRN PRN Reason: For Magnesium 1.2 - 1.6 mg/dL Potassium Chloride (Kcl 40 Meq Premix Inj) 40 meq in 100 mls @ 25 mls/hr IV.SIG Q2H PRN PRN Reason: For Potassium 2.8 - 3.2 mEq/L Potassium Chloride (Kcl 20 Meq Premix Inj) 20 meq in 100 mls @ 50 mls/hr IV.SIG Q2H PRN PRN Reason: For Potassium 3.3 - 3.5 mEq/L Potassium Chloride (Kcl 40 Meq Premix Inj) 40 meq in 100 mls @ 25 mls/hr IV.SIG UNSCH PRN PRN Reason: For Potassium 3.3 - 3.5 mEq/L Potassium Phosphate 30 mmol/ (Sodium Chloride) 260 mls @ 42 mls/hr IV.SIG UNSCH PRN PRN Reason: SEE LABEL COMMENTS Sodium Phosphate 30 mmol/ (Sodium Chloride) 260 mls @ 42 mls/hr IV.SIG UNSCH PRN PRN Reason: For Phosphorus < 2.5 mg/dL Potassium Chloride (Kcl 20 Meq Premix Inj) 20 meq in 100 mls @ 50 mls/hr IV.SIG Q2H PRN PRN Reason: For Potassium 2.8 - 3.2 mEq/L Diltiazem HCl 125 mg/ Sodium (Chloride) 125 mls @ 5 mls/hr IV.CONT TITRATE PRN ; Protocol PRN Reason: Per Protocol Last Titration: 03/17/18 20:22 Dose: Infused Sodium Chloride (Ns Inj) 1,000 mls @ 125 mls/hr IV.CONT .Q8H [facility] Last Infusion: 03/18/18 06:29 Dose: 125 mls/hr Amiodarone HCl 450 mg/ (Dextrose) 250 mls @ 33.33 mls/hr IV.CONT TITRATE PRN; Protocol PRN Reason: Per Protocol Last Admin: 03/18/18 02:30 Dose: 0.5 mg/min, 16.66 mls/hr Ketorolac Tromethamine (Toradol Inj) 30 mg IV.PUSH Q6H [facility] Stop: 03/20/18 14:59 Last Admin: 03/18/18 04:35 Dose: 30 mg Lactulose (Lactulose Liq) 30 ml PO DAILY PRN PRN Reason: SEVERE CONSITIPATION Metoclopramide HCl (Reglan Inj) 10 mg IV.PUSH Q8H [facility]; Protocol Last Admin: 03/18/18 05:00 Dose: 10 mg Ondansetron HCl (Zofran Inj) 4 mg IV.PUSH Q6H PRN PRN Reason: NAUSEA OR VOMITING Oxycodone HCl (Roxicodone) 5 mg PO Q4H PRN PRN Reason: PAIN SCALE 1 TO 5 Oxycodone HCl (Roxicodone) 10 mg PO Q6H PRN PRN Reason: PAIN SCALE 6 TO 10 Sodium Chloride (Ns Flush) 2 ml IV.FLUSH BID [facility] Last Admin: 03/17/18 21:29 Dose: 2 ml Sodium Chloride (Ns Flush) 2 ml IV.FLUSH PRN PRN PRN Reason: FLUSH AFTER USING IV ACCESS Temazepam (Restoril) 15 mg PO HS PRN PRN Reason: INSOMNIA Allergies Allergy/AdvReac Type Severity Reaction Status Date / Time No Known Allergies Allergy Verified 03/15/18 00:07 Home Medications Medication Instructions Recorded Confirmed Type No Known Home Medications 03/15/18 03/15/18 History Physical Exam Vital signs: Vital Signs 03/17/18 08:34 03/17/18 08:49 03/17/18 09:00 Temperature Pulse Rate 98 H 96 H 108 H Respiratory Rate 16 17 19 Blood Pressure 124/87 138/98 H Pulse Oximetry 95 95 95 03/17/18 09:04 03/17/18 09:19 03/17/18 09:34 Temperature Pulse Rate 104 H 101 H 115 H Respiratory Rate 17 20 28 H Blood Pressure 150/112 H 141/83 H 128/88 Pulse Oximetry 94 L 95 94 L 03/17/18 09:49 03/17/18 10:00 03/17/18 10:04 Temperature Pulse Rate 114 H 113 H 106 H Respiratory Rate 29 H 23 23 Blood Pressure 134/95 H 155/126 H Pulse Oximetry 95 95 96 03/17/18 10:19 03/17/18 10:34 03/17/18 10:49 Temperature Pulse Rate 102 H 101 H 96 H Respiratory Rate 25 H 22 22 Blood Pressure 116/89 130/95 H 116/88 Pulse Oximetry 95 96 97 03/17/18 11:00 03/17/18 11:04 03/17/18 11:19 Temperature Pulse Rate 104 H 90 91 H Respiratory Rate 25 H 24 23 Blood Pressure 125/83 115/80 Pulse Oximetry 96 96 96 03/17/18 11:34 03/17/18 12:38 03/17/18 14:30 Temperature 98.0 F Pulse Rate 90 119 H 95 H Respiratory Rate 22 32 H 29 H Blood Pressure 114/78 77/55 L 111/74 Pulse Oximetry 96 96 97 03/17/18 14:40 03/17/18 14:50 03/17/18 15:00 Temperature Pulse Rate 94 H 106 H 103 H Respiratory Rate 23 23 20 Blood Pressure 120/84 122/79 120/84 Pulse Oximetry 94 L 96 97 03/17/18 15:10 03/17/18 15:20 03/17/18 15:30 Temperature Pulse Rate 102 H 104 H 123 H Respiratory Rate 22 21 29 H Blood Pressure 129/79 146/74 H 118/77 Pulse Oximetry 97 97 95 03/17/18 15:40 03/17/18 15:50 03/17/18 16:00 Temperature 98.2 F Pulse Rate 110 H 111 H 105 H Respiratory Rate 24 17 21 Blood Pressure 118/82 127/87 118/83 Pulse Oximetry 96 98 97 03/17/18 16:10 03/17/18 16:20 03/17/18 16:30 Temperature Pulse Rate 114 H 114 H 115 H Respiratory Rate 22 23 21 Blood Pressure 128/84 113/84 125/71 Pulse Oximetry 97 97 98 03/17/18 16:40 03/17/18 16:50 03/17/18 17:00 Temperature Pulse Rate 130 H 100 H 93 H Respiratory Rate 33 H 23 18 Blood Pressure 150/100 H 136/86 112/86 Pulse Oximetry 93 L 98 96 03/17/18 17:10 03/17/18 17:20 03/17/18 17:30 Temperature Pulse Rate 89 100 H 89 Respiratory Rate 17 18 15 Blood Pressure 117/80 117/81 119/82 Pulse Oximetry 96 97 95 03/17/18 17:40 03/17/18 17:50 03/17/18 18:00 Temperature Pulse Rate 90 91 H 105 H Respiratory Rate 18 18 34 H Blood Pressure 118/78 117/82 156/89 H Pulse Oximetry 93 L 96 93 L 03/17/18 18:10 03/17/18 18:20 03/17/18 18:30 Temperature Pulse Rate 113 H 110 H 107 H Respiratory Rate 24 23 23 Blood Pressure 128/83 124/82 123/83 Pulse Oximetry 97 96 96 03/17/18 19:00 03/17/18 22:00 03/17/18 23:00 Temperature Pulse Rate 102 H 101 H Respiratory Rate 16 Blood Pressure Pulse Oximetry 03/18/18 00:50 03/18/18 01:00 03/18/18 01:10 Temperature 98.2 F Pulse Rate 108 H 105 H 104 H Respiratory Rate 20 17 16 Blood Pressure 113/90 140/86 Pulse Oximetry 96 95 95 03/18/18 01:20 03/18/18 01:30 03/18/18 01:40 Temperature Pulse Rate 98 H 105 H 100 H Respiratory Rate 15 15 16 Blood Pressure 126/92 H 140/90 145/100 H Pulse Oximetry 95 95 95 03/18/18 01:50 03/18/18 02:00 03/18/18 02:10 Temperature Pulse Rate 102 H 101 H 101 H Respiratory Rate 16 16 15 Blood Pressure 122/91 H 117/95 H 128/90 Pulse Oximetry 95 95 95 03/18/18 02:20 03/18/18 02:30 03/18/18 02:40 Temperature Pulse Rate 102 H 106 H 102 H Respiratory Rate 16 16 13 Blood Pressure 130/91 H 113/82 119/93 H Pulse Oximetry 95 96 95 03/18/18 02:50 03/18/18 03:00 03/18/18 03:10 Temperature Pulse Rate 102 H 98 H 106 H Respiratory Rate 14 22 17 Blood Pressure 131/79 165/88 H 132/87 Pulse Oximetry 95 95 95 03/18/18 03:20 03/18/18 03:30 03/18/18 03:40 Temperature Pulse Rate 106 H 98 H 101 H Respiratory Rate 19 14 15 Blood Pressure 141/85 H 118/90 119/95 H Pulse Oximetry 95 95 95 03/18/18 03:50 03/18/18 04:00 03/18/18 04:10 Temperature Pulse Rate 101 H 101 H 100 H Respiratory Rate 15 14 14 Blood Pressure 122/97 H 124/90 140/86 Pulse Oximetry 95 95 03/18/18 04:20 03/18/18 04:30 03/18/18 04:40 Temperature Pulse Rate 101 H 98 H 109 H Respiratory Rate 15 17 24 Blood Pressure 134/95 H 135/98 H 133/92 H Pulse Oximetry 96 95 96 03/18/18 04:50 03/18/18 05:05 03/18/18 06:00 Temperature Pulse Rate 111 H 105 H Respiratory Rate 22 16 Blood Pressure 128/93 H Pulse Oximetry 97 Intake & Output 03/17/18 03/18/18 03/18/18 18:59 06:59 18:59 Intake Total 705 / 705 2475 / 2475 Output Total 1480 / 1480 845 / 845 Balance -775 / -775 1630 / 1630 Weight 224 lb 10.417 oz Intake: IV 225 / 225 2024 NS Inj 1,000 ML @ 125 mls/hr IV 1600 / 1600 .CONT .Q8H [facility] Rx#:[id number] Cardizem Inj 125 MG In NS Inj 125 / 125 125 / 125 100 ML @ 5 MG/HR 5 mls/hr IV. CONT TITRATE PRN Rx#:[id number] Zosyn 4.5 GM Premix 4.5 gm In 100 / 100 300 / 300 100 ml @ 200 mls/hr IV.SIG Q6H [facility] Rx#:[id number] Oral 480 / 480 450 / 450 Output: Urine 1100 / 1100 600 / 600 Stool Amount (Stoma) 125 / 125 Right Lower Abdomen 125 / 125 Wound Drainage 380 / 380 120 / 120 # 1 Left Lower Anterior Abdomen 380 / 380 120 / 120 ORTEGA Drain Other: # Voids 2 Date of Last Bowel Movement 03/17/18 03/18/18 Narrative: GENERAL: AO x 3 and comfortable. SKIN: Warm and dry. NECK: Trachea midline. No JVD. CARDIOVASCULAR: Tachycardia rate and irregular rhythm. no murmur RESPIRATORY: No accessory muscle use. Clear to auscultation. Breath sounds equal bilaterally. GASTROINTESTINAL: Abdomen soft, mildly-tender, moderately distended. s/p ostomy with bag and green liquid output. MUSCULOSKELETAL: Extremities without clubbing, cyanosis, or edema. No obvious deformities. NEUROLOGICAL: Awake and alert. No obvious cranial nerve deficits. Motor grossly within normal limits. Five out of 5 muscle strength in the arms and legs. Normal speech. PSYCHIATRIC: Appropriate mood and affect; insight and judgment normal. - Urinary Catheter Management Indwelling Urethral Catheter Cath placed during this visit: yes, but has since been removed by the nurse Reason for continuing: Decision to DC catheter Insertion date: 03/15/18 Insertion time: 11:52 Removal date: 03/16/18 Removal time: 06:50 Results 03/17/18 11:58 03/17/18 10:30 CBC 03/17/18 Range/Units 11:58 WBC 11.9 H (4.0-11.0) th/mm3 RBC 4.28 L (4.50-5.90) mil/mm3 Hgb 14.4 (13.0-17.0) gm/dL Hct 42.0 (39.0-51.0) % Plt Count 340 D (150-450) th/mm3 Neut # (Auto) 9.1 H (1.8-7.7) th/mm3 Lymph # (Auto) 1.5 (1.0-4.8) th/mm3 [place] # (Auto) 1.2 H (0.0-0.9) th/mm3 Eos # (Auto) 0.1 (0.0-0.4) th/mm3 Baso # (Auto) 0.1 (0.0-0.2) th/mm3 Comprehensive Metabolic Panel 03/17/18 Range/Units 10:30 Sodium 140 (136-145) meq/L Potassium 3.6 (3.5-5.1) meq/L Chloride 107 (98-107) meq/L Carbon Dioxide 27.4 (21.0-32.0) meq/L BUN 11 (7-18) mg/dL Creatinine 0.84 (0.60-1.30) mg/dL Calcium 8.5 (8.5-10.1) mg/dL Intake and Output 03/17/18 03/18/18 03/18/18 22:59 06:59 14:59 Intake Total 1805 / 1805 1150 / 1150 Output Total 1480 / 1480 845 / 845 Balance 325 / 325 305 / 305 Intake: IV 1325 / 1325 700 / 700 NS Inj 1,000 ML @ 125 mls/hr IV 1000 / 1000 600 / 600 .CONT .Q8H [facility] Rx#:[id number] Cardizem Inj 125 MG In NS Inj 125 / 125 100 ML @ 5 MG/HR 5 mls/hr IV. CONT TITRATE PRN Rx#:[id number] Zosyn 4.5 GM Premix 4.5 gm In 200 / 200 100 / 100 100 ml @ 200 mls/hr IV.SIG Q6H [facility] Rx#:[id number] Oral 480 / 480 450 / 450 Output: Urine 1100 / 1100 600 / 600 Stool Amount (Stoma) 125 / 125 Right Lower Abdomen 125 / 125 Wound Drainage 380 / 380 120 / 120 # 1 Left Lower Anterior Abdomen 380 / 380 120 / 120 ORTEGA Drain Other: # Voids 2 Date of Last Bowel Movement 03/17/18 03/18/18 Weight 224 lb 10.417 oz - Imaging and Cardiology Imaging: Impressions Abdomen X-Ray 03/17/18 00:00 CONCLUSION: Postoperative abdomen appearance with moderate distention of small bowel loops. Assessment and Plan - Plan Assessment: Post-operative atrial fibrillation Diverticulitis complicated by perforated diverticulum and now s/p Lap ERLINDA, washout and ostomy formation Recommendations: -attempt at pharmacologic cardioversion with amiodarone via gtt given bowel surgery and questionable absorption of oral medication at this juncture. Hold on anticoagulation therapy at this time due to CHADS2-VASc score 0 and bleeding risk s/p surgical procedure 03/15. -continue amiodarone gtt. for now at 1 mg/min for the next 24 hours and then would continue gtt at 0.5mg/min for next 5 days if maintained inpatient. If plan to d/c prior to next 5 days, would transition amiodarone to 400mg po bid for total duration of amiodarone therapy of 5-7 days. -If no conversion to sinus rhythm then consider DCC -outpatient cardiology follow up in next 4-6 weeks. Discussed Condition With: Patient with RN at bedside, Dr. Raza
[2018-03-18] MEDS: Sod Chloride 0.9% Inj 1,000 ML IV.CONT SCH (09:16)
[2018-03-18] MEDS: Famotidine PF Inj 20 MG/2 ML Vial IV.PUSH SCH ×2 (10:31→21:18)
--- NOTE | 2018-03-18 11:30 | P.PNIM ---
Subjective Interval history: asking for sugar restriction in liquids no vomiting. Physical Exam Vital signs: Last Vital Signs Temp 98.2 F 03/18/18 00:50 Pulse 105 H 03/18/18 06:00 Resp 16 03/18/18 05:05 BP 128/93 H 03/18/18 04:50 Pulse Ox 97 03/18/18 04:50 Narrative: heart irreg lung cta abd bs/ostomy. dark liquid stool. mild distention ext no edema Results Labs CBC & Chem 7: 03/17/18 11:58 03/17/18 10:30 Assessment and Plan Plan perferated diverticulitis s/p lap with HALI, abscess drainage, creation of ostomy new onset afib/rvr. possibley related to intraabdomenal process, n/v overnight.. mild ileus pattern on kub abnormal tft...in setting of acute illness cont iv abx prn pain control liquid diet PT and oob. dvt prophylaxis with sq heparin. discussed with Dr Oliveira and Ry. attempts at chemical cardioversion with Amio..if fails then consider DC cardioversion. dc ivf. repeat TFT as outpt after critical illness. Progress Note: Quality VTE Deep Vein Thrombosis/Pulmonary Embolism Present on Admission: No
--- NOTE | 2018-03-18 14:05 | P.PNGS ---
Subjective Interval history: Unable to sleep last night. In atrial fib still, amiodarone increased. Physical Exam Vital signs: Vital Signs 03/17/18 14:30 03/17/18 14:40 03/17/18 14:50 Temperature Pulse Rate 95 H 94 H 106 H Respiratory Rate 29 H 23 23 Blood Pressure 111/74 120/84 122/79 Pulse Oximetry 97 94 L 96 03/17/18 15:00 03/17/18 15:10 03/17/18 15:20 Temperature Pulse Rate 103 H 102 H 104 H Respiratory Rate 20 22 21 Blood Pressure 120/84 129/79 146/74 H Pulse Oximetry 97 97 97 03/17/18 15:30 03/17/18 15:40 03/17/18 15:50 Temperature Pulse Rate 123 H 110 H 111 H Respiratory Rate 29 H 24 17 Blood Pressure 118/77 118/82 127/87 Pulse Oximetry 95 96 98 03/17/18 16:00 03/17/18 16:10 03/17/18 16:20 Temperature 98.2 F Pulse Rate 105 H 114 H 114 H Respiratory Rate 21 22 23 Blood Pressure 118/83 128/84 113/84 Pulse Oximetry 97 97 97 03/17/18 16:30 03/17/18 16:40 03/17/18 16:50 Temperature Pulse Rate 115 H 130 H 100 H Respiratory Rate 21 33 H 23 Blood Pressure 125/71 150/100 H 136/86 Pulse Oximetry 98 93 L 98 03/17/18 17:00 03/17/18 17:10 03/17/18 17:20 Temperature Pulse Rate 93 H 89 100 H Respiratory Rate 18 17 18 Blood Pressure 112/86 117/80 117/81 Pulse Oximetry 96 96 97 03/17/18 17:30 03/17/18 17:40 03/17/18 17:50 Temperature Pulse Rate 89 90 91 H Respiratory Rate 15 18 18 Blood Pressure 119/82 118/78 117/82 Pulse Oximetry 95 93 L 96 03/17/18 18:00 03/17/18 18:10 03/17/18 18:20 Temperature Pulse Rate 105 H 113 H 110 H Respiratory Rate 34 H 24 23 Blood Pressure 156/89 H 128/83 124/82 Pulse Oximetry 93 L 97 96 03/17/18 18:30 03/17/18 19:00 03/17/18 22:00 Temperature Pulse Rate 107 H 102 H Respiratory Rate 23 16 Blood Pressure 123/83 Pulse Oximetry 96 03/17/18 23:00 03/18/18 00:50 03/18/18 01:00 Temperature 98.2 F Pulse Rate 101 H 108 H 105 H Respiratory Rate 20 17 Blood Pressure 113/90 Pulse Oximetry 96 95 03/18/18 01:10 03/18/18 01:20 03/18/18 01:30 Temperature Pulse Rate 104 H 98 H 105 H Respiratory Rate 16 15 15 Blood Pressure 140/86 126/92 H 140/90 Pulse Oximetry 95 95 95 03/18/18 01:40 03/18/18 01:50 03/18/18 02:00 Temperature Pulse Rate 100 H 102 H 101 H Respiratory Rate 16 16 16 Blood Pressure 145/100 H 122/91 H 117/95 H Pulse Oximetry 95 95 95 03/18/18 02:10 03/18/18 02:20 03/18/18 02:30 Temperature Pulse Rate 101 H 102 H 106 H Respiratory Rate 15 16 16 Blood Pressure 128/90 130/91 H 113/82 Pulse Oximetry 95 95 96 03/18/18 02:40 03/18/18 02:50 03/18/18 03:00 Temperature Pulse Rate 102 H 102 H 98 H Respiratory Rate 13 14 22 Blood Pressure 119/93 H 131/79 165/88 H Pulse Oximetry 95 95 95 03/18/18 03:10 03/18/18 03:20 03/18/18 03:30 Temperature Pulse Rate 106 H 106 H 98 H Respiratory Rate 17 19 14 Blood Pressure 132/87 141/85 H 118/90 Pulse Oximetry 95 95 95 03/18/18 03:40 03/18/18 03:50 03/18/18 04:00 Temperature Pulse Rate 101 H 101 H 101 H Respiratory Rate 15 15 14 Blood Pressure 119/95 H 122/97 H 124/90 Pulse Oximetry 95 95 95 03/18/18 04:10 03/18/18 04:20 03/18/18 04:30 Temperature Pulse Rate 100 H 101 H 98 H Respiratory Rate 14 15 17 Blood Pressure 140/86 134/95 H 135/98 H Pulse Oximetry 96 95 03/18/18 04:40 03/18/18 04:50 03/18/18 05:00 Temperature Pulse Rate 109 H 111 H 107 H Respiratory Rate 24 22 22 Blood Pressure 133/92 H 128/93 H 123/94 H Pulse Oximetry 96 97 97 03/18/18 05:05 03/18/18 06:00 03/18/18 06:01 Temperature Pulse Rate 103 H 99 H Respiratory Rate 16 17 16 Blood Pressure 137/95 H Pulse Oximetry 95 96 03/18/18 07:00 03/18/18 07:01 03/18/18 08:00 Temperature 98.4 F Pulse Rate 102 H 102 H 100 H Respiratory Rate 15 16 15 Blood Pressure 147/90 H Pulse Oximetry 96 96 95 03/18/18 08:01 03/18/18 09:00 03/18/18 09:01 Temperature Pulse Rate 102 H 103 H 86 Respiratory Rate 15 18 23 Blood Pressure 138/88 150/109 H Pulse Oximetry 95 97 97 03/18/18 09:18 03/18/18 10:00 03/18/18 10:01 Temperature Pulse Rate 115 H 119 H 119 H Respiratory Rate 22 20 18 Blood Pressure 150/98 H 155/114 H Pulse Oximetry 97 97 97 03/18/18 11:00 03/18/18 11:01 03/18/18 12:00 Temperature 98.2 F Pulse Rate 114 H 116 H 129 H Respiratory Rate 21 16 19 Blood Pressure 152/103 H Pulse Oximetry 97 97 97 03/18/18 12:01 03/18/18 13:00 03/18/18 13:01 Temperature Pulse Rate 133 H 117 H 121 H Respiratory Rate 22 18 14 Blood Pressure 155/78 H 143/110 H Pulse Oximetry 97 97 97 Intake & Output 03/17/18 03/18/18 03/18/18 18:59 06:59 18:59 Intake Total 705 / 705 2475 / 2475 350 / 350 Output Total 1480 / 1480 845 / 845 Balance -775 / -775 1630 / 1630 350 / 350 Weight 101.9 kg Intake: IV 225 / 225 2024 / 2024 350 / 350 Cordarone Inj 450 MG In D5W Inj 250 / 250 241 ML @ 1 MG/MIN 33.33 mls/hr IV.CONT TITRATE PRN Rx#: [id number] NS Inj 1,000 ML @ 125 mls/hr IV 1600 / 1600 .CONT .Q8H [facility] Rx#:[id number] Cardizem Inj 125 MG In NS Inj 125 / 125 125 / 125 100 ML @ 5 MG/HR 5 mls/hr IV. CONT TITRATE PRN Rx#:[id number] Zosyn 4.5 GM Premix 4.5 gm In 100 / 100 300 / 300 100 / 100 100 ml @ 200 mls/hr IV.SIG Q6H [facility] Rx#:[id number] Oral 480 / 480 450 / 450 Output: Urine 1100 / 1100 600 / 600 Stool Amount (Stoma) 125 / 125 Right Lower Abdomen 125 / 125 Wound Drainage 380 / 380 120 / 120 # 1 Left Lower Anterior Abdomen 380 / 380 120 / 120 ORTEGA Drain Other: # Voids 2 Date of Last Bowel Movement 03/17/18 03/18/18 03/18/18 Narrative: NAD Abd: distended, inc c/d/i, ostomy pink with liquid output - Urinary Catheter Management Indwelling Urethral Catheter Cath placed during this visit: yes, but has since been removed by the nurse Reason for continuing: Decision to DC catheter Insertion date: 03/15/18 Insertion time: 11:52 Removal date: 03/16/18 Removal time: 06:50 Results - Labs 03/17/18 11:58 03/17/18 10:30 Laboratory Results - last 24 hr 03/17/18 10:30 Free T4 1.86 H - Imaging Imaging: ITS Impressions Abdomen/Pelvis CT 03/15/18 00:24 CONCLUSION: 1. Acute perforated sigmoid diverticulitis with secondary involvement of 2 loops of adjacent small bowel. Pneumoperitoneum is noted. No abscess. Abdomen X-Ray 03/17/18 00:00 CONCLUSION: Postoperative abdomen appearance with moderate distention of small bowel loops. Assessment and Plan - Plan POD 3 s/p lap washout and drainage perforated diverticulitis with diverting ileostomy. A fib on amiodarone gtt. Ileus. Clears. reglan. A fib- on amiodarone gtt. Possible cardioversion if not converted soon. Zosyn DVT proph: heparin.
--- NOTE | 2018-03-18 14:45 | P.PNWCN ---
Wound Care Nurse Consult Description: Patient was seen today for follow up of ostomy teaching for RLQ ileostomy. Communicated with: RN Shy PADILLA, patient, spouse and message left for Doctor Maria supervisor type disk quality control for general surgery. Recommendation: 1. Empty pouch when 1/3 to 1/2 full. 2. Change ostomy appliance every 3 to 5 days or as needed if leaking or dislodged. 3. Do not reinforce ostomy appliance with tape, change if leaking. Bowel Diversion Stoma - Bowel Stoma Right Lower Abdomen Stoma Edema: Yes Stoma Diameter: 38 Stoma Appearance: Dark Red, Protruding, Round Loop Supporting Will: Yes Collection Device: Two-piece, Cut to Fit Wafer Drainage Description: Liquid, Brown, Green Wafer Size: 4 Inch Cut to Fit 100mm Stoma Care: Pouch and Wafer Changed, Skin Care Pema-Stomal Skin Appearance: Intact - Additional Information Additional Information: Patient seen on for continued teaching of ileostomy care and teaching. Patient's spouse is in room during teaching. Change ileostomy appliance today. Removed two piece 4 inch ostomy appliance in place, to reveal stoma that is protruding, round, red with will in place. Cleansed peristomal skin with warm water and wash cloth and patted dry. There is a slight bulging area of skin noted above the stoma Stoma measures 38 mm in diameter. Four inch cut to fit wafer was applied to skin with adaptor in place. Will was included inside ostomy appliance. Pouch was snapped in place. Encouraged patient to use pillow to splint area during coughing or using abdominal muscle. Patient tolerated ostomy appliance change well. Call placed to Doctor Maria, Surgeon supervisor type disk quality control for Doctor Tee to report findings and ostomy appliance change.
[2018-03-18] MEDS: Temazepam 15 MG Capsule PO PRN (22:57)
[2018-03-19] MEDS: Piperacil/Tazo 4.5 GM Premix 4.5 GM/100 ML BAG IV.SIG SCH ×5 (02:30→21:03)
[2018-03-19] MEDS: Ketorolac Inj 30 MG/ML (IVP) Vial IV.PUSH SCH ×4 (02:31→21:00)
[2018-03-19] MEDS: Chlorhexidine Gluconate 2% 1 Pack (2 Cloths) TOPICAL SCH (04:51)
[2018-03-19 05:38] LABS: Anion Gap 8 meq/L (5-15); Blood Urea Nitrogen 10 mg/dL (7-18); Calcium 8.2 mg/dL (8.5-10.1); Chloride 107 meq/L (98-107); Glomerular Filtration Rate Greater Than 89 mL/min (>89); Glucose,Random 126 mg/dL (74-106); Magnesium 2.2 mg/dL (1.5-2.5); Potassium 3.6 meq/L (3.5-5.1); Sodium 140 meq/L (136-145)
[2018-03-19] MEDS: Heparin - SQ 10,000 UNITS/ML Vial SQ SCH ×3 (05:47→20:59)
[2018-03-19] MEDS: Famotidine PF Inj 20 MG/2 ML Vial IV.PUSH SCH ×2 (09:42→21:00)
--- NOTE | 2018-03-19 10:15 | P.PNIM ---
Subjective Interval history: slept well. liquid stool in ostomy increasing rafi liquid diet. ambulating hallway. Physical Exam Vital signs: Last Vital Signs Temp 98.2 F 03/19/18 04:01 Pulse 101 H 03/19/18 06:01 Resp 17 03/19/18 06:01 BP 139/89 03/19/18 06:01 Pulse Ox 97 03/19/18 06:01 Narrative: heart irreg lung cta abd bs/ostomy. dark liquid stool. mild distention ext no edema Results Labs CBC & Chem 7: 03/17/18 11:58 03/19/18 04:26 Assessment and Plan Plan perferated diverticulitis s/p lap with HALI, abscess drainage, creation of ostomy new onset afib/rvr. possibley related to intraabdomenal process mild ileus pattern on kub abnormal tft...in setting of acute illness cont iv abx prn pain control liquid diet. advance per surgery PT and oob. dvt prophylaxis with sq heparin. attempts at chemical cardioversion with Amio..if fails then consider DC cardioversion with MARY on Wednesday. repeat TFT as outpt after critical illness. Explained in detail to pt the plan. reviewed images. Progress Note: Quality VTE Deep Vein Thrombosis/Pulmonary Embolism Present on Admission: No
--- NOTE | 2018-03-19 16:40 | P.PNGS ---
Subjective Patient reports: feels better, pain is less, tolerating liquids well, no flatus , no bowel movement (He states he is feeling much better; is up and around without problem. No nausea or emesis. ) Physical Exam Vital signs: Vital Signs 03/18/18 17:00 03/18/18 17:01 03/18/18 18:00 Temperature Pulse Rate 105 H 102 H 109 H Respiratory Rate 17 16 20 Blood Pressure 148/100 H Pulse Oximetry 96 96 95 03/18/18 18:01 03/18/18 19:00 03/18/18 19:01 Temperature Pulse Rate 107 H 127 H 119 H Respiratory Rate 19 20 23 Blood Pressure 146/94 H 146/101 H Pulse Oximetry 96 97 96 03/18/18 20:00 03/18/18 20:01 03/18/18 21:00 Temperature 98.3 F Pulse Rate 113 H 110 H 148 H Respiratory Rate 19 18 57 H Blood Pressure 157/118 H Pulse Oximetry 96 97 03/18/18 22:00 03/18/18 22:01 03/18/18 22:15 Temperature Pulse Rate 138 H 135 H 134 H Respiratory Rate 26 H 22 21 Blood Pressure 155/111 H 129/96 H Pulse Oximetry 99 99 99 03/18/18 23:00 03/18/18 23:01 03/19/18 00:00 Temperature 98.2 F Pulse Rate 114 H 111 H 106 H Respiratory Rate 21 21 17 Blood Pressure 142/103 H Pulse Oximetry 98 97 95 03/19/18 00:01 03/19/18 00:30 03/19/18 01:00 Temperature Pulse Rate 110 H 108 H 107 H Respiratory Rate 17 15 16 Blood Pressure 140/96 H 144/102 H Pulse Oximetry 95 95 96 03/19/18 01:01 03/19/18 02:00 03/19/18 02:01 Temperature Pulse Rate 105 H 105 H 105 H Respiratory Rate 16 18 18 Blood Pressure 168/95 H 167/115 H Pulse Oximetry 96 96 95 03/19/18 03:00 03/19/18 03:01 03/19/18 04:00 Temperature Pulse Rate 100 H 104 H 108 H Respiratory Rate 16 17 15 Blood Pressure 159/98 H Pulse Oximetry 97 97 95 03/19/18 04:01 03/19/18 05:00 03/19/18 05:01 Temperature 98.2 F Pulse Rate 115 H 96 H 101 H Respiratory Rate 20 14 15 Blood Pressure 145/83 H 142/93 H Pulse Oximetry 95 96 96 03/19/18 06:00 03/19/18 06:01 03/19/18 10:15 Temperature Pulse Rate 103 H 101 H Respiratory Rate 17 17 18 Blood Pressure 139/89 Pulse Oximetry 98 97 03/19/18 16:29 Temperature Pulse Rate Respiratory Rate 28 H Blood Pressure Pulse Oximetry Intake & Output 03/18/18 03/19/18 03/19/18 18:59 06:59 18:59 Intake Total 1570 / 1570 1180 / 1180 200 / 200 Output Total 1190 / 1190 700 / 700 Balance 380 / 380 480 / 480 200 / 200 Weight 101.9 kg Intake: IV 850 / 850 700 / 700 200 / 200 Cordarone Inj 450 MG In D5W Inj 250 / 250 500 / 500 241 ML @ 1 MG/MIN 33.33 mls/hr IV.CONT TITRATE PRN Rx#: [id number] NS Inj 1,000 ML @ 125 mls/hr IV 400 / 400 .CONT .Q8H RODGER Rx#:[id number] Zosyn 4.5 GM Premix 4.5 gm In 200 / 200 200 / 200 200 / 200 100 ml @ 200 mls/hr IV.SIG Q6H RODGER Rx#:[id number] Oral 720 / 720 480 / 480 Output: Urine 750 / 750 400 / 400 Stool Amount (Stoma) 200 / 200 200 / 200 Right Lower Abdomen 200 / 200 200 / 200 Wound Drainage 240 / 240 100 / 100 # 1 Left Lower Anterior Abdomen 240 / 240 100 / 100 ORTEGA Drain Other: # Voids 2 Date of Last Bowel Movement 03/18/18 03/18/18 # Emeses 1 - Routine Abdominal Exam Present: soft Comments: His abdomen is soft but moderately distended. The ileostomy has been putting out increased fluid, but there is a paucity of gas at present. The ORTEGA drain is gradually decreasing. - Urinary Catheter Management Indwelling Urethral Catheter Cath placed during this visit: yes, but has since been removed by the nurse Reason for continuing: Decision to DC catheter Insertion date: 03/15/18 Insertion time: 11:52 Removal date: 03/16/18 Removal time: 06:50 Results - Labs 03/17/18 11:58 03/19/18 04:26 Laboratory Results - last 24 hr 03/19/18 04:26 Sodium 140 Potassium 3.6 Chloride 107 Carbon Dioxide 25.0 Anion Gap 8 BUN 10 Creatinine 0.72 Estimated GFR Greater than 89 Random Glucose 126 H Calcium 8.2 L Magnesium 2.2 - Imaging Imaging: ITS Impressions Abdomen/Pelvis CT 03/15/18 00:24 CONCLUSION: 1. Acute perforated sigmoid diverticulitis with secondary involvement of 2 loops of adjacent small bowel. Pneumoperitoneum is noted. No abscess. Abdomen X-Ray 03/17/18 00:00 CONCLUSION: Postoperative abdomen appearance with moderate distention of small bowel loops. Assessment and Plan - Assessment (1) Diverticulitis of colon with perforation Code(s): K57.20 - Diverticulitis of large intestine with perforation and abscess without bleeding Status: Acute Plan: He is now allowed to ambulate. Overall he is doing well from a GS standpoint. Will continue to follow.
[2018-03-20] MEDS: Temazepam 15 MG Capsule PO PRN (01:07)
[2018-03-20] MEDS: Piperacil/Tazo 4.5 GM Premix 4.5 GM/100 ML BAG IV.SIG SCH ×4 (02:41→21:50)
[2018-03-20] MEDS: Ketorolac Inj 30 MG/ML (IVP) Vial IV.PUSH SCH ×2 (02:41→09:40)
[2018-03-20] MEDS: Heparin - SQ 10,000 UNITS/ML Vial SQ SCH ×3 (03:42→21:49)
[2018-03-20 07:04] LABS: Anion Gap 9 meq/L (5-15); Blood Urea Nitrogen 10 mg/dL (7-18); Calcium 8.5 mg/dL (8.5-10.1); Carbon Dioxide 25.6 meq/L (21.0-32.0); Chloride 105 meq/L (98-107); Glomerular Filtration Rate Greater Than 89 mL/min (>89); Glucose,Random 95 mg/dL (74-106); Potassium 3.7 meq/L (3.5-5.1); Sodium 140 meq/L (136-145)
[2018-03-20] MEDS: Famotidine PF Inj 20 MG/2 ML Vial IV.PUSH SCH ×2 (09:40→21:50)
--- NOTE | 2018-03-20 11:09 | P.PNIM ---
Subjective Interval history: doing great. converted to sinus. Physical Exam Vital signs: Last Vital Signs Temp 98.7 F 03/20/18 04:00 Pulse 80 03/20/18 06:00 Resp 30 H 03/20/18 06:00 BP 144/92 H 03/20/18 06:00 Pulse Ox 98 03/20/18 06:00 Narrative: heart reg lung cta abd bs/ostomy. dark liquid stool. mild distention ext no edema Results Labs CBC & Chem 7: 03/17/18 11:58 03/20/18 04:48 Assessment and Plan Assessment (1) Diverticulitis of colon with perforation: Code(s): K57.20 - Diverticulitis of large intestine with perforation and abscess without bleeding Status: Acute Plan perferated diverticulitis s/p lap with HALI, abscess drainage, creation of ostomy new onset afib/rvr. possibley related to intraabdomenal process mild ileus pattern on kub abnormal tft...in setting of acute illness cont iv abx prn pain control liquid diet. advance per surgery PT and oob. dvt prophylaxis with sq heparin. attempts at chemical cardioversion with Amio. Pt converted yesterday to sinus. cont amio for 7 days total either iv or po depending on if he is discharged in next 24 to 48 hrs. repeat TFT as outpt after critical illness. Explained in detail to pt the plan. Progress Note: Quality VTE Deep Vein Thrombosis/Pulmonary Embolism Present on Admission: No _ (1) Diverticulitis of colon with perforation Qualifiers: Diverticulitis bleeding:
--- NOTE | 2018-03-20 16:00 | P.PNGS ---
Subjective Patient reports: feels better, tolerating liquids well, flatus, bowel movement ( Continues to improve; tolerating clear liquids and is ready to advance. No other complaints.) Physical Exam Vital signs: Vital Signs 03/19/18 16:00 03/19/18 16:01 03/19/18 16:29 Temperature Pulse Rate 78 80 Respiratory Rate 21 18 28 H Blood Pressure 148/94 H Pulse Oximetry 100 100 03/19/18 17:00 03/19/18 17:01 03/19/18 18:00 Temperature 98.1 F Pulse Rate 89 90 84 Respiratory Rate 17 24 21 Blood Pressure 147/93 H 132/95 H Pulse Oximetry 100 98 99 03/19/18 19:00 03/19/18 19:01 03/19/18 20:00 Temperature 98.7 F Pulse Rate 85 86 86 Respiratory Rate 22 22 19 Blood Pressure 136/96 H Pulse Oximetry 99 100 100 03/19/18 20:01 03/19/18 21:00 03/19/18 21:01 Temperature Pulse Rate 84 84 86 Respiratory Rate 17 21 23 Blood Pressure 138/97 H 152/128 H Pulse Oximetry 100 100 100 03/19/18 21:36 03/19/18 22:00 03/19/18 22:01 Temperature Pulse Rate 85 83 96 H Respiratory Rate 22 20 25 H Blood Pressure 152/91 H 132/90 Pulse Oximetry 99 100 100 03/19/18 23:00 03/20/18 00:00 03/20/18 01:00 Temperature Pulse Rate 86 79 79 Respiratory Rate 13 21 21 Blood Pressure Pulse Oximetry 99 99 98 03/20/18 01:01 03/20/18 02:00 03/20/18 03:00 Temperature Pulse Rate 78 77 76 Respiratory Rate 24 12 13 Blood Pressure 139/96 H Pulse Oximetry 99 95 96 03/20/18 03:49 03/20/18 04:00 03/20/18 05:00 Temperature 98.7 F Pulse Rate 75 74 71 Respiratory Rate 16 17 14 Blood Pressure 132/84 139/94 H 142/93 H Pulse Oximetry 96 97 99 03/20/18 06:00 03/20/18 10:10 Temperature Pulse Rate 80 Respiratory Rate 30 H 11 L Blood Pressure 144/92 H Pulse Oximetry 98 Intake & Output 03/19/18 03/20/18 03/20/18 18:59 06:59 18:59 Intake Total 920 / 920 1041 / 1041 100 / 100 Output Total 1145 / 1145 1180 / 1180 Balance -225 / -225 -139 / -139 100 / 100 Weight 101.9 kg Intake: IV 200 / 200 441 / 441 100 / 100 Cordarone Inj 450 MG In D5W Inj 241 / 241 241 ML @ 1 MG/MIN 33.33 mls/hr IV.CONT TITRATE PRN Rx#: [id number] Zosyn 4.5 GM Premix 4.5 gm In 200 / 200 200 / 200 100 / 100 100 ml @ 200 mls/hr IV.SIG Q6H RODGER Rx#:[id number] Oral 720 / 720 600 / 600 Output: Urine 650 / 650 900 / 900 Stool 400 / 400 Stool Amount (Stoma) 200 / 200 Right Lower Abdomen 200 / 200 Wound Drainage 95 / 95 80 / 80 # 1 Left Lower Anterior Abdomen 95 / 95 80 / 80 ORTEGA Drain Other: # Voids 3 Date of Last Bowel Movement 03/19/18 03/20/18 - Routine Abdominal Exam Present: soft, ostomy Comments: Ileostomy is pink and is functioning well. His abdomen is benign and the ORTEGA remains serous. - Urinary Catheter Management Indwelling Urethral Catheter Cath placed during this visit: yes, but has since been removed by the nurse Reason for continuing: Decision to DC catheter Insertion date: 03/15/18 Insertion time: 11:52 Removal date: 03/16/18 Removal time: 06:50 Results - Labs 03/17/18 11:58 03/20/18 04:48 Laboratory Results - last 24 hr 03/20/18 04:48 Sodium 140 Potassium 3.7 Chloride 105 Carbon Dioxide 25.6 Anion Gap 9 BUN 10 Creatinine 0.88 Estimated GFR Greater than 89 Random Glucose 95 Calcium 8.5 - Imaging Imaging: ITS Impressions Abdomen/Pelvis CT 03/15/18 00:24 CONCLUSION: 1. Acute perforated sigmoid diverticulitis with secondary involvement of 2 loops of adjacent small bowel. Pneumoperitoneum is noted. No abscess. Abdomen X-Ray 03/17/18 00:00 CONCLUSION: Postoperative abdomen appearance with moderate distention of small bowel loops. Assessment and Plan - Assessment (1) Diverticulitis of colon with perforation Code(s): K57.20 - Diverticulitis of large intestine with perforation and abscess without bleeding Status: Acute Plan: Continues to do well; will advance to full liquid diet. OK from GS standpoint to transfer to the floor.
[2018-03-21] MEDS: Temazepam 15 MG Capsule PO PRN ×2 (00:15→21:22)
[2018-03-21] MEDS: Heparin - SQ 10,000 UNITS/ML Vial SQ SCH ×3 (04:02→20:11)
[2018-03-21] MEDS: Piperacil/Tazo 4.5 GM Premix 4.5 GM/100 ML BAG IV.SIG SCH ×2 (04:02→11:03)
[2018-03-21] MEDS: Famotidine PF Inj 20 MG/2 ML Vial IV.PUSH SCH ×2 (11:03→20:12)
--- NOTE | 2018-03-21 11:38 | P.PNIM ---
Subjective Interval history: Pt has NO new complaints. Pt is tolerating full liquid diet. Pt denies nausea or vomiting. Pt denies fever or chills. Physical Exam Vital signs: Last Vital Signs Temp 98.5 F 03/21/18 08:00 Pulse 83 03/21/18 11:00 Resp 19 03/21/18 11:00 BP 138/108 H 03/21/18 11:00 Pulse Ox 98 03/21/18 11:00 Narrative: heart reg lung cta abd bs/ostomy. dark liquid stool. mild distention ext no edema Results Labs CBC & Chem 7: 03/22/18 06:47 03/22/18 06:47 Assessment and Plan Assessment (1) Diverticulitis of colon with perforation: Code(s): K57.20 - Diverticulitis of large intestine with perforation and abscess without bleeding Status: Acute Plan 1) Perforated Diverticulis - s/p Laparoscopic drainage of intraabdominal abscess, lysis of adhesions, and diverting ileostomy performed by Dr. Oliveira (03/15/18) - KUB (03/17) --> mild ileus - pt now tolerating PO intake - 700ml in Ostomy bag overnight - Case d/w Dr. Oliveira (03/21/18) - will advance to soft diet - Zosyn (03/15 - 03/21) - Blood Cx (03/15) --> no growth - No fever, WBC 11.9 (03/17) - DVT prophylaxis with subQ heparin - oxycodone prn pain - supportive care 2) Atrial Fibrillaiton with RVR - likely d/t intraabdominal procecess. - Echocardiogram (03/17/18) --> EF 55-60% - Pt chemically converted to NSR on IV Amiodarone - change amiodarone to 400mg PO BID x 7d - Case d/w Cardiology, Dr. Raza (03/21/18) 3) Abnormal Thyroid function - TSH 0.248 (03/17) - Free T4 (03/17) - abnormal thryroid function in setting of acute illness - No treatment or furuther w/u at this time - recommend repeat pt's thyroid labs outpt in 4-6 weeks Progress Note: Quality VTE Deep Vein Thrombosis/Pulmonary Embolism Present on Admission: No _ (1) Diverticulitis of colon with perforation Qualifiers: Diverticulitis bleeding:
--- NOTE | 2018-03-21 11:55 | P.PNWCN ---
Wound Care Nurse Consult Description: Patient was seen today for follow up of ostomy teaching for RLQ ileostomy. Communicated with: RN Shasta, patient and spouse Recommendation: 1. Empty pouch when 1/3 to 1/2 full. 2. Change ostomy appliance every 3 to 5 days or as needed if leaking or dislodged. 3. Do not reinforce ostomy appliance with tape, change if leaking. Bowel Diversion Stoma - Bowel Stoma ileostomy R lower abdomen Stoma Diameter: 38 (~38 mm in diameter) Stoma Appearance: Beefy Red, Protruding, Round Loop Supporting Will: Yes Collection Device: Two-piece Drainage Description: Liquid, Brown, Green Wafer Size: 4 Inch Cut to Fit 100mm Pema-Stomal Surrounding Tissue Sensation Description: No Symptoms - Additional Information Additional Information: Patient seen for follow up teaching of new ileostomy. Assisted patient to empty ileostomy pouch in toilet. Stoma to ileostomy presents as red, protruding, with will in place. Ileostomy appliance is dry and intact. Will assist patient was ileostomy appliance change tomorrow.
--- NOTE | 2018-03-21 12:39 | P.PNGS ---
Subjective Interval history: He is feeling better. Tolerated a smoothie yesterday. Physical Exam Vital signs: Vital Signs 03/20/18 13:00 03/20/18 14:00 03/20/18 15:00 Temperature Pulse Rate 79 86 81 Respiratory Rate 21 18 17 Blood Pressure 155/97 H Pulse Oximetry 100 99 99 03/20/18 15:02 03/20/18 16:00 03/20/18 17:00 Temperature 98.3 F Pulse Rate 79 81 80 Respiratory Rate 21 17 19 Blood Pressure 132/93 H Pulse Oximetry 98 99 99 03/20/18 18:00 03/20/18 18:08 03/20/18 19:00 Temperature Pulse Rate 85 87 94 H Respiratory Rate 18 19 20 Blood Pressure 141/90 H Pulse Oximetry 100 100 97 03/20/18 19:08 03/20/18 20:00 03/20/18 20:08 Temperature 98.6 F Pulse Rate 93 H 91 H 91 H Respiratory Rate 20 19 24 Blood Pressure 145/92 H 141/115 H Pulse Oximetry 97 98 97 03/20/18 21:00 03/20/18 21:08 03/20/18 22:00 Temperature Pulse Rate 88 91 H 87 Respiratory Rate 20 20 14 Blood Pressure 151/94 H Pulse Oximetry 99 99 99 03/20/18 22:08 03/20/18 23:00 03/20/18 23:08 Temperature Pulse Rate 86 84 85 Respiratory Rate 16 11 L 11 L Blood Pressure 147/105 H 138/104 H Pulse Oximetry 97 100 99 03/21/18 00:15 03/21/18 00:16 03/21/18 01:00 Temperature Pulse Rate 86 85 82 Respiratory Rate 28 H 17 15 Blood Pressure 129/93 H 130/91 H Pulse Oximetry 97 98 95 03/21/18 02:00 03/21/18 03:00 03/21/18 04:00 Temperature 98.1 F Pulse Rate 78 77 77 Respiratory Rate 14 15 15 Blood Pressure 124/93 H 147/87 H 137/89 Pulse Oximetry 96 95 96 03/21/18 05:00 03/21/18 06:00 03/21/18 07:00 Temperature Pulse Rate 79 76 76 Respiratory Rate 15 14 15 Blood Pressure 133/86 139/85 137/87 Pulse Oximetry 94 L 95 96 03/21/18 08:00 03/21/18 09:00 03/21/18 10:00 Temperature 98.5 F Pulse Rate 82 77 82 Respiratory Rate 11 L 15 14 Blood Pressure 141/90 H 128/88 134/95 H Pulse Oximetry 97 95 98 03/21/18 11:00 Temperature Pulse Rate 83 Respiratory Rate 19 Blood Pressure 138/108 H Pulse Oximetry 98 Intake & Output 03/20/18 03/21/18 03/21/18 18:59 06:59 18:59 Intake Total 1650 / 1650 420 / 420 250 / 250 Output Total 1180 / 1180 700 / 700 100 / 100 Balance 470 / 470 -280 / -280 150 / 150 Weight 101.9 kg Intake: IV 450 / 450 200 / 200 250 / 250 Cordarone Inj 450 MG In D5W Inj 250 / 250 250 / 250 241 ML @ 1 MG/MIN 33.33 mls/hr IV.CONT TITRATE PRN Rx#: [id number] Zosyn 4.5 GM Premix 4.5 gm In 200 / 200 200 / 200 100 ml @ 200 mls/hr IV.SIG Q6H RODGER Rx#:[id number] Oral 1200 / 1200 220 / 220 Output: Urine 700 / 700 700 / 700 Stool 400 / 400 Stool Amount (Stoma) 100 / 100 Right Lower Abdomen 100 / 100 Wound Drainage 80 / 80 # 1 Left Lower Anterior Abdomen 80 / 80 ORTEGA Drain Other: Date of Last Bowel Movement 03/20/18 03/21/18 03/20/18 Narrative: NAD Abd: moderate distention, ostomy dark pink, liquid stool in bag - Urinary Catheter Management Indwelling Urethral Catheter Cath placed during this visit: yes, but has since been removed by the nurse Reason for continuing: Decision to DC catheter Insertion date: 03/15/18 Insertion time: 11:52 Removal date: 03/16/18 Removal time: 06:50 Results - Labs 03/17/18 11:58 03/20/18 04:48 - Imaging Imaging: ITS Impressions Abdomen/Pelvis CT 03/15/18 00:24 CONCLUSION: 1. Acute perforated sigmoid diverticulitis with secondary involvement of 2 loops of adjacent small bowel. Pneumoperitoneum is noted. No abscess. Abdomen X-Ray 03/17/18 00:00 CONCLUSION: Postoperative abdomen appearance with moderate distention of small bowel loops. Assessment and Plan - Assessment (1) Diverticulitis of colon with perforation Code(s): K57.20 - Diverticulitis of large intestine with perforation and abscess without bleeding Status: Acute - Plan POD 6 s/p lap washout and drainage perforated diverticulitis with diverting ileostomy. Converted to sinus rhythm and now being started on PO amiodarone. Soft diet. A fib- on amiodarone po. D/c zosyn. Ok for transfer to floor. DVT proph: heparin.
[2018-03-21] MEDS: Amiodarone 200 MG Tablet PO SCH (20:11)
[2018-03-22] MEDS: Heparin - SQ 10,000 UNITS/ML Vial SQ SCH ×3 (03:35→20:35)
[2018-03-22] MEDS: Amiodarone 200 MG Tablet PO SCH ×2 (08:47→20:35)
[2018-03-22] MEDS: Famotidine PF Inj 20 MG/2 ML Vial IV.PUSH SCH ×2 (08:48→20:35)
[2018-03-22 09:33] LABS: Baso % (Auto) 0.6 % (0.0-2.0); Eos # (Auto) 0.1 th/mm3 (0.0-0.4); Eos % (Auto) 1.6 % (0.0-4.0); Hematocrit 37.1 % (39.0-51.0); Hemoglobin 12.8 gm/dL (13.0-17.0); Lymph # (Auto) 1.9 th/mm3 (1.0-4.8); Lymph % (Auto) 26.8 % (9.0-44.0); Mean Corpuscular HGB Conc 34.6 % (32.0-36.0); Mean Corpuscular Hemoglobin 33.6 pg (27.0-34.0); Mean Corpuscular Volume 96.9 fL (80.0-100.0); Mean Platelet Volume 7.6 fL (7.0-11.0); Mono # (Auto) 0.9 th/mm3 (0.0-0.9); Mono % (Auto) 12.3 % (0.0-8.0); Neut # (Auto) 4.1 th/mm3 (1.8-7.7); Neut % (Auto) 58.7 % (16.0-70.0); Platelet Count 424 th/mm3 (150-450); Red Blood Count 3.83 mil/mm3 (4.50-5.90); Red Cell Distribution Width 14.4 % (11.6-17.2)
[2018-03-22 10:02] LABS: Anion Gap 9 meq/L (5-15); Blood Urea Nitrogen 9 mg/dL (7-18); Calcium 8.7 mg/dL (8.5-10.1); Carbon Dioxide 23.6 meq/L (21.0-32.0); Chloride 106 meq/L (98-107); Glomerular Filtration Rate Greater Than 89 mL/min (>89); Glucose,Random 90 mg/dL (74-106); Magnesium 2.2 mg/dL (1.5-2.5); Potassium 3.7 meq/L (3.5-5.1); Sodium 139 meq/L (136-145)
--- NOTE | 2018-03-22 13:27 | P.PNIM ---
Subjective Interval history: Pt is tolerating soft diet. Pt reports ostomy bag full of liquid stool this AM. Pt denies nausea, vomiting, or abdominal pain. Pt c/o pain and swelling at left hand/former IV site. Per pt, pain and swelling at left hand was worse yesterday. Physical Exam Vital signs: Last Vital Signs Temp 98.1 F 03/22/18 11:51 Pulse 115 H 03/22/18 11:51 Resp 20 03/22/18 11:51 BP 150/97 H 03/22/18 11:51 Pulse Ox 98 03/22/18 11:51 Narrative: heart reg lung cta abd bs/ostomy. dark liquid stool. mild distention ext: left hand is swollen but erythema or warmth. Results Labs CBC & Chem 7: 03/22/18 06:47 03/22/18 06:47 Assessment and Plan Assessment (1) Diverticulitis of colon with perforation: Code(s): K57.20 - Diverticulitis of large intestine with perforation and abscess without bleeding Status: Acute Plan 1) Perforated Diverticulis - s/p Laparoscopic drainage of intraabdominal abscess, lysis of adhesions, and diverting ileostomy performed by Dr. Oliveira (03/15/18) - KUB (03/17) --> mild ileus - pt now tolerating PO intake - Case d/w Dr. Oliviera (03/21/18) - will advance to regular diet - General Surgery to assess ORTEGA drain for removal - Zosyn (03/15 - 03/21) - Blood Cx (03/15) --> no growth - No fever, WBC 11.9 (03/17), 7.0 (03/22) - DVT prophylaxis with subQ heparin - oxycodone prn pain - supportive care - encourage ambulation - anticipate d/c to home 03/23/18 2) phlebitis, left hand - pt feels that this has improved some from 03/21 - elevate hand on pillows when in bed - no fever, no leukocytosis - observe 3) Atrial Fibrillaiton with RVR - likely d/t intraabdominal procecess. - Echocardiogram (03/17/18) --> EF 55-60% - Pt chemically converted to NSR on IV Amiodarone - change amiodarone to 400mg PO BID x 7d - Case d/w Cardiology, Dr. Raza (03/21/18) 4) Abnormal Thyroid function - TSH 0.248 (03/17) - Free T4 (03/17) - abnormal thryroid function in setting of acute illness - No treatment or furuther w/u at this time - recommend repeat pt's thyroid labs outpt in 4-6 weeks Progress Note: Quality VTE Deep Vein Thrombosis/Pulmonary Embolism Present on Admission: No _ (1) Diverticulitis of colon with perforation Qualifiers: Diverticulitis bleeding:
--- NOTE | 2018-03-22 13:28 | P.DCO ---
Diagnosis (1) Diverticulitis of colon with perforation: Status: Acute Home Health Nursing Order: Medical education, Signs/symptoms of disease process, Medication education-adverse effect, Wound care and dressing changes and Nursing assessment with vital signs Instructions: ostomy care Case Management Consult Case Management Consult-Home Health: Yes I have seen patient Wilfredo Esquivel on 03/22/18. My clinical findings support the need for the requested home health care services because: Limited mobility due to disease progression, Medication compliance is questionable, Limited ability to care for self and Need for psychosocial assistance I certify that my clinical findings support that this patient is homebound because: Unsafe to leave home unassisted, Need for psychosocial assistance and Unable to use public transportation _ (1) Diverticulitis of colon with perforation Qualifiers: Diverticulitis bleeding:
--- NOTE | 2018-03-22 14:48 | P.PNWCN ---
Wound Care Nurse Consult Description: Patient was seen today for follow up of ostomy teaching for RLQ ileostomy. Communicated with: LEENA ponce, patient, and patient's spouse Recommendation: 1. Empty pouch when 1/3 to 1/2 full. 2. Change ostomy appliance every 3 to 5 days or as needed if leaking or dislodged. 3. Do not reinforce ostomy appliance with tape, change if leaking. Bowel Diversion Stoma - Bowel Stoma Right Lower Abdomen Stoma Appearance: Beefy Red, Oval Loop Supporting Will: Yes Collection Device: Cut to Fit Wafer Drainage Description: Liquid, Brown, Green Wafer Size: 4 Inch Cut to Fit 100mm Stoma Care: Pouch and Wafer Changed, Skin Care Pema-Stomal Skin Appearance: Intact Pema-Stomal Surrounding Tissue Sensation Description: No Symptoms - Additional Information Additional Information: Patient seen for continued ileostomy teaching before discharge.Patient instructed on measuring stoma for oval stoma, applying wafer and skin care.Stoma now is oval shaped, protruding,red with will in place. Stoma is red in color and measures 1 1/2 inches tall and 1 1/8 inches wide. Peristomal skin was cleansed with warm water and wash cloths and patted dry. Skin barrier film was applied before new 4 inch wafer with adaptor was applied including will within ostomy appliance.Pouch was snapped in place. Patient verbalizes understanding and tolerated procedure well.
--- NOTE | 2018-03-22 17:34 | P.PNGS ---
Subjective Interval history: He is doing well. Now tolerating some regular food and feels much better. Mild bloating. Pain controlled. Physical Exam Vital signs: Vital Signs 03/21/18 20:00 03/21/18 23:40 03/22/18 08:00 Temperature 98.3 F 98.4 F 98.5 F Pulse Rate 94 H 90 79 Respiratory Rate 19 20 17 Blood Pressure 138/92 H 135/76 145/85 H Pulse Oximetry 98 97 96 03/22/18 11:51 03/22/18 16:00 Temperature 98.1 F 98.9 F Pulse Rate 115 H 83 Respiratory Rate 20 19 Blood Pressure 150/97 H 138/87 Pulse Oximetry 98 98 Intake & Output 03/21/18 03/22/18 03/22/18 18:59 06:59 18:59 Intake Total 850 / 850 800 / 800 Output Total 2500 / 2500 1110 / 1110 Balance -1650 / -1650 -310 / -310 Weight 101.9 kg Intake: IV 250 / 250 Cordarone Inj 450 MG In D5W Inj 250 / 250 241 ML @ 1 MG/MIN 33.33 mls/hr IV.CONT TITRATE PRN Rx#: [id number] Oral 600 / 600 800 / 800 Output: Urine 750 / 750 600 / 600 Stool 800 / 800 Stool Amount (Stoma) 900 / 900 500 / 500 ileostomy R lower abdomen 500 / 500 Right Lower Abdomen 900 / 900 Wound Drainage 50 / 50 10 / 10 # 1 Left Lower Anterior Abdomen 50 / 50 10 / 10 ORTEGA Drain Other: # Voids 5 2 Date of Last Bowel Movement 03/21/18 03/21/18 03/22/18 Narrative: NAD Abd: soft, ostomy pink with dark liquid output, inc c/d/i, mild distention. - Urinary Catheter Management Indwelling Urethral Catheter Cath placed during this visit: yes, but has since been removed by the nurse Reason for continuing: Decision to DC catheter Insertion date: 03/15/18 Insertion time: 11:52 Removal date: 03/16/18 Removal time: 06:50 Results - Labs 03/22/18 06:47 03/22/18 06:47 Laboratory Results - last 24 hr 03/22/18 03/22/18 06:47 06:47 WBC 7.0 RBC 3.83 L Hgb 12.8 L Hct 37.1 L MCV 96.9 MCH 33.6 MCHC 34.6 RDW 14.4 Plt Count 424 MPV 7.6 Neut % (Auto) 58.7 Lymph % (Auto) 26.8 [place] % (Auto) 12.3 H Eos % (Auto) 1.6 Baso % (Auto) 0.6 Neut # (Auto) 4.1 Lymph # (Auto) 1.9 [place] # (Auto) 0.9 Eos # (Auto) 0.1 Baso # (Auto) 0.0 WBC Differential . Differential Comment Auto diff final Sodium 139 Potassium 3.7 Chloride 106 Carbon Dioxide 23.6 Anion Gap 9 BUN 9 Creatinine 0.88 Estimated GFR Greater than 89 Random Glucose 90 Calcium 8.7 Magnesium 2.2 - Imaging Imaging: ITS Impressions Abdomen/Pelvis CT 03/15/18 00:24 CONCLUSION: 1. Acute perforated sigmoid diverticulitis with secondary involvement of 2 loops of adjacent small bowel. Pneumoperitoneum is noted. No abscess. Abdomen X-Ray 03/17/18 00:00 CONCLUSION: Postoperative abdomen appearance with moderate distention of small bowel loops. Assessment and Plan - Assessment (1) Diverticulitis of colon with perforation Code(s): K57.20 - Diverticulitis of large intestine with perforation and abscess without bleeding Status: Acute - Plan POD 7 s/p lap washout and drainage perforated diverticulitis with diverting ileostomy. Continues to improve. Soft diet. A fib- on amiodarone po. DVT proph: heparin. If continues to tolerate diet will dc home tomorrow.
[2018-03-22] MEDS: Temazepam 15 MG Capsule PO PRN (22:30)
[2018-03-23] MEDS: Heparin - SQ 10,000 UNITS/ML Vial SQ SCH ×2 (04:10→12:32)
[2018-03-23] MEDS: Famotidine PF Inj 20 MG/2 ML Vial IV.PUSH SCH (10:37)
[2018-03-23] MEDS: Amiodarone 200 MG Tablet PO SCH (10:38)
[2018-03-23 12:35] VITALS: PULSE 87
--- NOTE | 2018-03-23 13:11 | P.PNGS ---
Subjective Interval history: Tolerating diet. Stool thickening. Physical Exam Vital signs: Vital Signs 03/22/18 16:00 03/22/18 20:00 03/23/18 00:00 Temperature 98.9 F 99.6 F 98.4 F Pulse Rate 83 91 H 78 Respiratory Rate 19 18 17 Blood Pressure 138/87 142/77 H 131/71 Pulse Oximetry 98 97 99 03/23/18 08:00 03/23/18 12:00 Temperature 98.2 F 98.1 F Pulse Rate 86 87 Respiratory Rate 17 17 Blood Pressure 118/70 141/91 H Pulse Oximetry 96 96 Intake & Output 03/22/18 03/23/18 03/23/18 18:59 06:59 18:59 Output Total 160 / 160 1050 / 1050 Balance -160 / -160 -1050 / -1050 Weight 97.2 kg Output: Urine 1050 / 1050 Stool Amount (Stoma) 150 / 150 ileostomy R lower abdomen 150 / 150 Wound Drainage 10 / 10 0 / 0 # 1 Left Lower Anterior Abdomen 10 / 10 0 / 0 ORTEGA Drain Other: Date of Last Bowel Movement 03/22/18 03/23/18 Narrative: Abd: soft, ntd. Stoma pink. Will removed. - Urinary Catheter Management Indwelling Urethral Catheter Cath placed during this visit: yes, but has since been removed by the nurse Reason for continuing: Decision to DC catheter Insertion date: 03/15/18 Insertion time: 11:52 Removal date: 03/16/18 Removal time: 06:50 Results - Labs 03/22/18 06:47 03/22/18 06:47 - Imaging Imaging: ITS Impressions Abdomen/Pelvis CT 03/15/18 00:24 CONCLUSION: 1. Acute perforated sigmoid diverticulitis with secondary involvement of 2 loops of adjacent small bowel. Pneumoperitoneum is noted. No abscess. Abdomen X-Ray 03/17/18 00:00 CONCLUSION: Postoperative abdomen appearance with moderate distention of small bowel loops. Assessment and Plan - Assessment (1) Diverticulitis of colon with perforation Code(s): K57.20 - Diverticulitis of large intestine with perforation and abscess without bleeding Status: Acute - Plan POD 8 s/p lap washout and drainage perforated diverticulitis with diverting ileostomy. Continues to improve. Soft diet. A fib- on amiodarone po. DVT proph: heparin. D/c ORTEGA. Will removed from loop ileostomy. Ok for dc home. F/u in 10 days.
[2018-03-23 16:15] VITALS: RESP 18; TEMP 97.8; O2SAT 99
--- NOTE | 2018-03-23 17:30 | US ---
EXAM DATE: 03/23/2018 5:25 PM EST AGE/SEX: 47 years / Male INDICATIONS: Bilateral arm swelling. CLINICAL DATA: This is the patient's initial encounter. Patient reports that signs and symptoms have been present for 1 day and indicates a pain score of 7/10. MEDICAL/SURGICAL HISTORY: . Bilateral arm swelling. None. COMPARISON: No prior exams available for comparison. FINDINGS: Right Upper Extremity: The vessels are compressible and augmentation response is documented. No fill ing defects are seen. The flow is phasic with respiration. Cephalic vein not seen. Left Upper Extremity: The vessels are compressible and augmentation response is documented. No filli ng defects are seen. The flow is phasic with respiration. Cephalic vein not seen. Other: None. CONCLUSION: 1. The study is negative for bilateral upper extremity deep venous thrombosis. 2. Slight limitation with nonvisualization of the cephalic veins bilaterally. Electronically signed by: Jn Aguirre MD Board Certified Radiologist 03/23/2018 5:28 PM EST
[2018-03-23 19:55] VITALS: BP 138/75
== END 2018-03-23 18:47 | disposition home health service (06) | DRG 329 ==
LOC: NEPE 23:07 → NEDA 03-15 03:35 → N03 03-15 06:10 → N07 03-21 17:57
PROVIDERS: ADMIT Hospitalist; ATTEND Hospitalist
CPT/HCPCS: 74000; 74018; 74177; 76937; 80048; 80053; 81001; 83605; 83690; 83735; 84100; 84439; 84443; 85025; 85610; 85730; 86850; 86900; 86901; 87040; 90761; 90774; 90775; 90784; 93005; 93306; 93970; 96361; 96374; 96375; 97162; 99285; C8952; J0282; J1450; J1644; J1885; J2270; J2405; J2543; J2765; J3010; J7030; J7060; Q9967